=== PATIENT | male | born 1945 | race Caucasian/White ===

== ENCOUNTER 2019-12-31 14:39 | Outpatient (CLI) | payer MEDICARE, SELFPAY ==
--- NOTE | ~2019-12-31 | XR_ITS ---
XR lumbar spine 2-3V DATE: 12/31/2019 15:16 INDICATION: Low back pain, radiating to left leg. TECHNIQUE: AP, lateral, coned lateral lumbosacral views COMPARISON: None FINDINGS: Moderate osteopenia. There is mild levoscoliosis of the thoracolumbar spine. There is severe degenerative disc disease at L1-2, with prominent spurring. The remaining lumbar and lumbosacral interspaces are relatively well preserved. No fracture or bone destruction is evident. The included lower thoracic and lumbar pedicles are intac t. The sacroiliac joints are intact. Surgical clips overlie the left upper quadrant and right lower quadrant. There is a prominent amount of fecal material within the colon. IMPRESSION: Osteopenia Severe degenerative disc disease at L1-2 Reviewed, dictated and finalized at location A.
[2019-12-31 15:02] LABS: Basophils Absolute Auto 0.05 K/mm3 (0.00-0.10); Basophils Percent Auto 0.6 % (0.0-1.0); Eosinophils Absolute Auto 0.26 K/mm3 (0.02-0.50); Eosinophils Percent Auto 3.3 % (1.0-6.0); Hemoglobin 14.4 g/dL (12.4-15.3); Immature Granulocyte Absolute 0.03 K/mm3 (0.00-0.00); Immature Granulocyte Percent A 0.4 % (0.0-0.0); Lymphocytes Absolute Auto 2.29 K/mm3 (1.10-4.50); Mean Corpuscular HGB Conc 33.5 g/dL (32.0-36.0); Mean Corpuscular Volume 92.5 fL (78.0-102.0); Mean Platelet Volume 10.5 fl (8.7-11.0); Monocytes Absolute Auto 0.63 K/mm3 (0.10-0.90); Neutrophils Absolute Auto 4.6 K/mm3 (1.7-7.2); Neutrophils Percent Auto 58.7 % (50.0-70.0); Platelet Count Result 291 K/mm3 (150-420); Red Blood Count 4.65 M/mm3 (4.70-6.10); Red Cell Distribution Width 12.8 % (11.6-14.4); White Blood Count 7.9 K/mm3 (4.8-10.8)
[2019-12-31 15:10] LABS: Hemoglobin A1C 7.4 % (<5.7)
[2019-12-31 16:06] LABS: Alanine Aminotransferase 11 U/L (16-63); Albumin Level 4.1 g/dL (3.4-5.0); Alkaline Phosphatase 85 U/L (46-116); Anion Gap 15.9 mmol/L (7-16); Aspartate Amino Transferase 10 U/L (15-37); Bilirubin,Total 0.3 mg/dL (0.00-1.00); Blood Urea Nitrogen 20 mg/dL (7-18); Calcium 9.2 mg/dL (8.5-10.1); Carbon Dioxide 26 mmol/L (21-32); Chloride 101 mmol/L (98-108); Estimated Glomerular Filt Rate 43; Glucose 213 mg/dL (70-99); Osmolality Calculated 294 mOsm/kg (285-295); Potassium 4.9 mmol/L (3.5-5.1); Sodium 138 mmol/L (136-145); Total Protein 7.2 g/dL (6.4-8.2)
[2019-12-31 16:14] LABS: CRP < 0.0 mg/dL (0.0-0.9)
== END 2019-12-31 14:40 | disposition home or self-care (01) ==
LOC: CHSLAB 14:46
PROVIDERS: PCP Internal Medicine; Visit Provider Internal Medicine
DX: M54.9 Dorsalgia, unspecified (principal); M79.605 Pain in left leg; E11.9 Type 2 diabetes mellitus without complications
CPT/HCPCS: 36415; 72100; 80053; 83036; 85025; 86140

== ENCOUNTER 2020-01-01 10:27 | Outpatient (CLI) | payer MEDICARE, SELFPAY ==
--- NOTE | ~2020-01-01 | US_ITS ---
EXAMINATION: US arterial ankle brachial ind DATE: 01/01/2020 11:48 INDICATION: Peripheral arterial occlusive disease. TECHNIQUE: Segmental pressures and plethysmographic and Doppler waveforms of the brachial and lower e xtremity arteries were obtained. COMPARISON: None. FINDINGS: Right and left brachial artery pressures of 140 mm Hg and 133 mm Hg, respectively, are concordant (no rmal difference <= 30 mmHg). Borderline delayed systolic upstrokes at both the right posterior tibial and dorsalis pedis arteries on pulsed-wave Doppler. The right ankle-brachial index (BENJA) is 0.61 (normal >= 0.9-1.0). The left BENJA is 0.33 based only upon pressures in the left dorsalis pedis artery. No audible Doppler signal at the left posterior tibial artery with inflation of the pressure cuff however arterial wavef orms. Borderline delayed systolic upstrokes at both the left posterior tibial and dorsalis pedis marlene sheng on both stress Doppler. IMPRESSION: 1. Arterial occlusive disease to the bilateral lower limbs with moderately decreased right and severe ly decreased left ABIs. Reviewed, dictated and finalized at location A. IMPRESSION: 1. Arterial occlusive disease to the bilateral lower limbs with moderately decr eased right and severely decreased left ABIs.
== END 2020-01-01 10:28 | disposition home or self-care (01) ==
PROVIDERS: PCP Internal Medicine; Visit Provider Internal Medicine
DX: I73.9 Peripheral vascular disease, unspecified (principal); M54.9 Dorsalgia, unspecified; M79.605 Pain in left leg; E11.9 Type 2 diabetes mellitus without complications
CPT/HCPCS: 93922

== ENCOUNTER 2020-01-08 13:27 | Outpatient (RCR) | payer MEDICARE, SELFPAY ==
--- NOTE | 2020-01-16 09:13 | PTOPEVAL ---
Thank you for referring Tony Chapin to [facility]. Please review, sign, date and return this plan of care [facility]. I agree with and certify that the following plan of care is medically necessary. Referring Physician Date Admitting Provider: Attending Provider: Lazaro Pappas MD Referring Provider: *PT Outpatient Evaluation Start: 01/08/20 13:58 Freq: Status: Active Protocol: Document 01/08/20 13:58 J (Rec: 01/08/20 14:25 [id number]) Therapy Assessment Status Assessment Status Assessment Status Evaluation Evaluation Information Problem Diagnosis DDD Onset 01/04/20 Subjective Information patient reports he has been Query Text:As Reported By Patient/ having pain in the L leg. he Family reports he has been having pain in the L leg for about 2 weeks. he reports his doctor believes currently the pain may be coming from his back. patient reports he increased pain with walking long distances. he also reports he has increased pain at night. he reports the pain is behind his knee and down to his ankle (behind the leg). he reports he has had testing for blood clots of the LE's. Prior Level of Function Comments Additional Prior Level of Function prior to a few weeks ago, no Comments pain in the L LE. he reports he takes care of his yard weekly and noticed he began having pain one night that persisted. he reports he takes care of himself and his home. Pain Assessment Timing of Pain Assessment Timing of Pain Assessment Assessment Pain Scale Pain Scale Used Numeric (1 - 10) Self Report Pain Assessment Left Lower Posterior Leg(s) Reported Pain Level 5 Pain Description Sharp Greatest Pain Intensity 10 Pain Score Pain Score 5: Self Report Cervical and Lumbar ROM Lumbar ROM Lumbar Flexion Active Mid To Query Text:Hands to: Lumbar Extension (0-40) 0 Query Text:Active in Degrees Lumbar Lateral Flexion Right (0-40) 20 Query Text:Active in Degrees Lumbar Lateral Flexion Left (0-40) 20 Query Text:Active in Degrees Lower Extremity Muscle Strength Testing General Lower Extremity Strength Gross Lower Extremity Streng
== END 2020-03-04 15:33 | disposition home or self-care (01) ==
LOC: CHSPT 13:27
PROVIDERS: PCP Internal Medicine; Visit Provider Internal Medicine
DX: M51.36 Other intervertebral disc degeneration, lumbar region (principal); M54.5 Low back pain
CPT/HCPCS: 97014; 97110; 97161; 97530; G0283

== ENCOUNTER 2022-12-08 14:00 | Outpatient (CLI) | payer MEDICARE, SELFPAY ==
--- NOTE | ~2022-12-08 | US_ITS ---
EXAMINATION: US arterial ankle brachial ind DATE: 12/08/2022 15:14 INDICATION: Peripheral arterial occlusive disease. TECHNIQUE: Segmental pressures and plethysmographic and Doppler waveforms of the brachial and lower e xtremity arteries were obtained. COMPARISON: 01/01/2020 FINDINGS: Right and left brachial artery pressures of 143 mm Hg and 144 mm Hg, respectively, are concordant (no rmal difference <= 30 mmHg). The right ankle-brachial index (BENJA) is 0.49 (normal >= 0.9-1.0). The right great toe-brachial index (TBI) is 0.39 (normal >= 0.65), previously 0.36. Arterial Doppler waveforms demonstrate brisk systoli c upstrokes at both right posterior tibial and dorsalis pedis arteries. The left BENJA is unable to be obtained due to inability to insonate arterial waveforms during the plet hysmographic portion of the evaluation. The left TBI is 0.26, previously 0.19. Arterial Doppler wavef orms demonstrate borderline delayed upstrokes at the left posterior tibial and dorsalis pedis arterie s. IMPRESSION: 1. Arterial occlusive disease to the bilateral lower limbs with no significant change in moderately d ecreased right and severely decreased left toe brachial indices. Reviewed, dictated and finalized at location A. IMPRESSION: 1. Arterial occlusive disease to the bilateral lower limbs with no significant change in moderately decreased right and severely decreased left toe brachial i ndices.
== END 2022-12-08 14:01 | disposition home or self-care (01) ==
LOC: CHSIMG 14:01
PROVIDERS: PCP Internal Medicine; Visit Provider Internal Medicine
DX: N18.30 Chronic kidney disease, stage 3 unspecified (principal); E11.9 Type 2 diabetes mellitus without complications; I73.9 Peripheral vascular disease, unspecified
CPT/HCPCS: 93922

== ENCOUNTER 2023-01-27 18:51 | Inpatient (IN) | payer MEDICARE, SELFPAY ==
[2023-01-27] VITALS (26 sets, daily range): BP systolic 124–146; BP diastolic 59–83; PULSE 74–92; RESP 18–28; TEMP 36.8; O2SAT 93–100; BMI 20.5
--- NOTE | ~2023-01-27 | XR_ITS ---
EXAM: XR hip LT 2V w AP pelvis DATE: 01/27/2023 19:14 HISTORY: FALL, L HIP PAIN. SHORTENING AND ROTATION . COMPARISON: None available. FINDINGS: Normal mineralization. Mildly angulated intertrochanteric fracture. No lytic or blastic le jean. Joint spaces are maintained. No erosion or periosteal change. Soft tissues within normal limits . IMPRESSION: Mildly angulated left intertrochanteric fracture. Reviewed, dictated and finalized at location K.
--- NOTE | ~2023-01-27 | XR_ITS ---
EXAMINATION: XR chest 1V portable Exam Date/Time: 01/27/2023 19:30 CDT HISTORY: sob Comparison: 04/01/2019. RESULT: Lines, tubes, and devices: Surgical clips over the GE junction. Lungs and pleura: Senescent changes. No focal consolidation or pneumothorax. No large effusion. Pers istent left hemidiaphragm elevation and left basilar scar. Cardiomediastinal silhouette: Stable. Other: No acute osseous or upper abdominal finding. IMPRESSION: No acute cardiopulmonary process. Reviewed, dictated and finalized at location K.
--- NOTE | ~2023-01-27 | XR_ITS ---
EXAMINATION: XR surgery orthopedic DATE: 01/28/2023 17:25 CDT INDICATION: LT IT NAIL . TECHNIQUE: 3 fluoroscopic images of the left hip were obtained during left intertrochanteric nail edna cement performed by the surgeon. I was not present in the operating room. Fluoroscopy exposure time w as 2 minutes and 28.8 seconds. Air Kerma 0.4697 mGy. DAP 23.6936 mGym2. COMPARISON: None FINDINGS: Successful intertrochanteric nail placement, femoral intramedullary, and distal interlocking screw. N o unexpected radiopaque foreign body. IMPRESSION: Fluoroscopic documentation of left intertrochanteric nail placement. Please refer to the operative no te for complete procedural details . Reviewed, dictated and finalized at location K. IMPRESSION: Fluoroscopic documentation of left intertrochanteric nail placement. Please ref er to the operative note for complete procedural details .
[2023-01-27 19:45] LABS: Basophils Absolute Auto 0.1 K/mm3 (0.0-0.1); Basophils Percent Auto 0.4 % (0.2-1.2); Eosinophils Absolute Auto 0.1 K/mm3 (0-0.3); Eosinophils Percent Auto 0.9 % (0-4.4); Hematocrit 36.9 % (42.0-52.0); Hemoglobin 12.2 g/dL (14.0-18.0); Immature Granulocyte Absolute 0.08 K/mm3 (0.00-0.031); Immature Granulocyte Percent A 0.7 % (0-0.5); Lymphocytes Absolute Auto 1.09 K/mm3 (0.9-3.2); Mean Corpuscular HGB Conc 33.1 g/dl (32-36); Mean Corpuscular Hemoglobin 31.4 pg (26-34); Mean Corpuscular Volume 95.1 fl (80-100); Mean Platelet Volume 10.5 fl (7.4-10.4); Monocytes Absolute Auto 0.7 K/mm3 (0.1-0.6); Monocytes Percent Auto 5.7 % (2.6-8.5); Neutrophils Absolute Auto 10.1 K/mm3 (1.3-6.7); Neutrophils Percent Auto 83.3 % (45.5-73.1); Platelet Count Result 220 k/mm3 (150-375); Red Blood Count 3.88 M/mm3 (4.6-6.20); Red Cell Distribution Width 13.6 % (11.5-14.5); White Blood Count 12.1 K/mm3 (4.5-10.0)
[2023-01-27 19:48] LABS: INR 1.1; Prothrombin Time 14.3 Seconds (11.1-14.7)
[2023-01-27 19:49] LABS: Partial Thromboplastin Time 28.2 SECONDS (22.3-36.8)
[2023-01-27 19:53] LABS: Alanine Aminotransferase 14 U/L (6-50); Alkaline Phosphatase 59 U/L (38-126); Anion Gap 8 mmol/L (8-16); Aspartate Amino Transferase 24 U/L (17-59); Bilirubin,Total 0.5 mg/dL (0.2-1.3); Blood Urea Nitrogen 27 mg/dL (9-20); Calcium 8.7 mg/dL (8.4-10.2); Carbon Dioxide 25 mmol/L (22-30); Chloride 100 mmol/L (98-107); Estimated CRCL calculation 33 ml/min; Estimated Glomerular Filt Rate 45; Glucose 131 mg/dL (65-110); Potassium 4.6 mmol/L (3.4-5.0); Sodium 133 mmol/L (137-145)
[2023-01-27] MEDS: HYDROmorphone HCL INJ (*CRX) 1 MG/ML SYR 0.5 MG IV PUSH (19:54)
[2023-01-27] MEDS: SODIUM CHLORIDE 0.9% IV 1,000 ML 999 ML IV CONT (19:55)
--- NOTE | 2023-01-27 20:12 | PM.IMHP ---
H&P: HPI History of Present Illness Date/Time: 01/27/23 20:12 Chief Complaint: fall Narrative: This is an 78-year-old male with past medical history significant for type diabetes mellitus, dyslipidemia, tobacco dependence. 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 Patient denies any loss of consciousness. Preliminary workup is significant for x-ray of the hip was reported as: EXAM:? XR hip LT 2V w AP pelvis DATE: 01/27/2023 19:14 HISTORY: FALL, L HIP PAIN. SHORTENING AND ROTATION . COMPARISON:? None available. FINDINGS:? Normal mineralization. Mildly angulated intertrochanteric fracture. No lytic or blastic lesion. Joint spaces are maintained. No erosion or periosteal change. Soft tissues within normal limits. IMPRESSION: Mildly angulated left intertrochanteric fracture. EXAMINATION:? XR chest 1V portable Exam Date/Time:? 01/27/2023 19:30 CDT HISTORY: sob ? Comparison:? 04/01/2019. RESULT: Lines, tubes, and devices:? Surgical clips over the GE junction. Lungs and pleura:? Senescent changes. No focal consolidation or pneumothorax. No large effusion. Persistent left hemidiaphragm elevation and left basilar scar. Cardiomediastinal silhouette:? Stable. Other:? No acute osseous or upper abdominal finding. ? IMPRESSION: No acute cardiopulmonary process. Review of Systems Review of Systems: Fall, left hip pain, unable to bear weight on the left leg, unable to stand, decreased range of motion of left hip, left leg deformity Constitutional: Constitutional: Denies chills, Denies fatigue, Denies fever(s), Denies malaise, Reports poor appetite and Denies weakness Eyes: Eyes: Denies change in vision ENT: Denies dysphagia, Denies vertigo, Denies dizziness and Denies odynophagia Cardiovascular: Cardiovascular: Denies chest pain, Denies radiating jaw, neck or arm pain and Denies palpitations Respiratory: Respiratory: Denies chest congestion, Denies cough and Denies excessive phlegm production Gastrointestinal: Gastrointestinal: Denies abdominal pain, Denies dyspepsia, Denies heartburn, Denies diarrhea, Denies nausea and Denies vomiting Genitourinary: Genitourinary: Denies dysuria and Denies flank pain Musculoskeletal: Musculoskeletal: Reports deformity, Reports arthralgias and Reports limited range of motion Comments: Left hip Integumentary/Breasts: Skin/Breast: Denies rash Neurologic: Denies focal weakness and Denies Sensory deficit (Neuro) Psychiatric: Psychiatric: Reports no additional psychiatric complaints and Reports as per HPI Endocrine: Endocrine: Denies cold intolerance, Denies flushing, Denies heat intolerance, Denies polyphagia, Denies polydipsia and Denies palpitations Hematologic/Lymphatic: Hematologic/Lymphatic: Reports no additional hematologic/lymphatic complaints and Reports as per HPI Allergic/Immunologic: Allergic/Immunologic: Reports no additional allergic/immunologic complaints and Reports as per HPI PMF Family History Family History (Updated 01/27/23 @ 23:38 by Kristie Sharpe RN) Father Diabetes mellitus Dementia Mother Diabetes mellitus FH: CABG (coronary artery bypass surgery) Sibling Diabetes mellitus Sibling Diabetes mellitus Other Family history of arthritis Family history of lung cancer Social History Social History Smoking packs per day: 2 Smoking cigarettes per day: 40.0 Years smoked: 66 Smoking pack-years: 132.00 Smoking status: Current every day smoker Tobacco type: cigarettes Alcohol intake: never Substance use: never Substance use type: does not use Lack of Transportation: No Lack of Fo
--- NOTE | 2023-01-27 21:48 | ED.LOWEXIN ---
HPI - Extremity Injury (Lower) General Chief Complaint: Extremity Injury, Lower Stated Complaint: fall from mower History of Present Illness HPI Narrative: Patient is an 78-year-old male with a history of hyperlipidemia, diabetes, tobacco use presenting with left hip pain. Patient states that he was getting off of his mower when his left leg gave out from under him. States that this has been an ongoing problem. States that he fell onto his left hip and immediately had severe left hip pain and was unable to walk. EMS was called and noted that he had a shortened and externally rotated left leg. On arrival here, he states that his pain has improved following IV pain meds. He denies numbness or weakness. He denies any other injuries or complaints. Related Data Home Medications Medication Instructions Recorded Confirmed metformin 500 mg tablet,extended 500 mg PO BID 01/27/23 02/01/23 release 24 hr pravastatin 20 mg tablet 20 mg PO HS 01/27/23 02/01/23 Allergies Allergy/AdvReac Type Severity Reaction Status Date / Time No Known Allergies Allergy Verified 01/28/23 14:11 Review of Systems Review of Systems: All systems reviewed & are unremarkable except as noted in HPI and below PMFSH Past Medical History Medical History (Updated 02/08/23 @ 09:22 by Alfonso Joiner, ECHO) Closed intertrochanteric fracture of left femur Diabetes 1.5, managed as type 2 Fall Injury of left hand History of left hand injury as a kid, limited mobility Tobacco dependence Family History Family History Father Diabetes mellitus Dementia Mother Diabetes mellitus FH: CABG (coronary artery bypass surgery) Sibling Diabetes mellitus Sibling Diabetes mellitus Other Family history of arthritis Family history of lung cancer Social History Social History Smoking packs per day: 2 Smoking cigarettes per day: 40.0 Years smoked: 66 Smoking pack-years: 132.00 Smoking status: Current every day smoker Tobacco type: cigarettes Alcohol intake: never Substance use: never Substance use type: does not use Lack of Transportation: No Lack of Food: Often True Current Housing: I Have Housing Concerned About Future Housing: No Difficulty Paying Gas/Electric Bills: YES Difficulty Paying for Meds: YES Currently Unemployed: No Education: High School Diploma/GED Difficulty w/ Childcare or Family Care: No Spiritual care concerns: No Exam Narrative: GENERAL: Well-appearing, well-nourished, and in no acute distress. HEAD: Normocephalic, atraumatic. EYES: PERRLA and EOMI. ENT: Nares clear, no rhinorrhea or epistaxis. Mucous membranes moist. NECK: Supple. CHEST: Somewhat diminished bilaterally but no wheezing or crackles HEART: Regular rate and rhythm. Normal peripheral pulses. ABDOMEN: Soft, nontender, nondistended EXTREMITIES: Left leg is shortened and externally rotated, has tenderness over his lateral left hip, neurovascularly intact SKIN: Warm, dry, no rash. NEURO: No focal deficits. Alert and oriented x3. PSYCH: Normal mood and affect. Course Vital Signs Vital signs: Vital Signs Temperature 98.2 F 01/27/23 18:47 Pulse Rate 76 01/27/23 18:47 Respiratory Rate 20 01/27/23 18:47 Blood Pressure 140/68 01/27/23 18:47 Pulse Oximetry 95 01/27/23 18:47 Oxygen Delivery Room Air 01/27/23 18:47 Temperature 97.6 F 02/01/23 18:00 Pulse Rate 73 02/01/23 18:00 Respiratory Rate 16 02/01/23 18:00 Blood Pressure 128/62 02/01/23 18:00 Pulse Oximetry 96 02/01/23 18:00 Oxygen Delivery Room Air 02/01/23 09:40 Oxygen Flow Rate 3.5 01/29/23 05:56 MDM - Extremity Injury (Lower) MDM Narrative Medical decision making narrative: Patient is an 78-year-old male presenting with a left hip injury following a fall. Vitals within normal limits. E
--- NOTE | 2023-01-27 23:35 | ADMGEN ---
This patient, Tony Chapin, was admitted to 2 Medical Room 242-01. Patient/family oriented to hospital policies and general routines including ID bracelet, bed and alarms, visiting hours, pain management, procedures, bathroom and other care routines, personal items, smoking policy, room service/diet, and visiting hours. Information on how to activate the Rapid Response Team has been discussed. Patient/Family are encouraged to report perceived risks to care and to ask questions if they do not understand what they are told or what they should do.
[2023-01-27] MEDS: HYDROmorphone HCL INJ (*CRX) 1 MG/ML SYR IV PUSH (23:51)
[2023-01-28] VITALS (19 sets, daily range): BP systolic 120–165; BP diastolic 59–96; PULSE 67–94; RESP 11–22; TEMP 36.2–37.1; O2SAT 93–97
[2023-01-28] MEDS: HYDROmorphone HCL INJ (*CRX) 1 MG/ML SYR IV PUSH ×2 (05:00→08:03)
[2023-01-28 06:14] LABS: Glucose Point of Care 226 mg/dl (65-105)
--- NOTE | 2023-01-28 08:43 | PM.CNOR ---
Assessment and Plan Assessment and plan (1) Closed intertrochanteric fracture of left femur: Qualifiers: Encounter type: initial encounter Fracture alignment: displaced Qualified Code(s): S72.142A - Displaced intertrochanteric fracture of left femur, initial encounter for closed fracture Code(s): S72.142A - Displaced intertrochanteric fracture of left femur, initial encounter for closed fracture Status: Acute Assessment and Plan: History, exam and radiographs reviewed with the patient. Radiographs of the left hip in the ED reveal a mildly angulated left intertrochanteric fracture. The fracture type and injury as well as radiographs discussed with the patient. Operative and nonoperative treatment options reviewed. The patient elects for operative treatment. Risks of surgery including but not limited to neurovascular damage, wound complications, blood clot, pulmonary embolus, stroke, myocardial infarction, anesthetic risks up to and including were reviewed. Continued pain and possible dysfunction were explained. No guarantees were offered. The patient understands and wishes to proceed. Plan: Left Hip IT Nail by Dr. Reed NPO. Hold anticoagulation. Pain control. Ice hip. Bed rest. Appreciate medicine team clearance for surgical intervention. (2) Tobacco dependence: Code(s): F17.200 - Nicotine dependence, unspecified, uncomplicated Status: Acute Plan Reviewed history, exam, radiographs and surgical plans with attending physician and consulted surgeon, Dr. Reed. Agrees with current plan of care as indicated above. No further recommendations at this time. History of Present Illness HPI Consult date: 01/28/23 Consult reason: fracture Chief complaint: Left Intertrochanteric Fx Narrative: 78-year-old male with a history of high cholesterol, diabetes and tobacco use presented with left hip pain to the emergency room on January 27. He reports that he was getting off his mower and his left leg gave out from underneath of him. He immediately felt severe pain after falling onto the left hip and was unable to walk. EMS transported the patient to the emergency room. Radiographs in the ER reveal a left hip fracture. Orthopedic consult requested. Patient admitted for further evaluation surgical intervention. Review of Systems Constitutional: Constitutional: Reports no additional constitutional complaints, Denies excessive sweating, Denies fever(s) and Denies weight gain Eyes: Eyes: Reports no additional eye complaints and Denies change in vision ENT: Reports system reviewed and no additional complaints, except as documented and Reports Normal hearing present Cardiovascular: Cardiovascular: Denies chest pain, Denies diaphoresis, Denies leg ulcers and Denies dyspnea on exertion Respiratory: Respiratory: Reports no additional respiratory complaints, Denies cough and Denies dyspnea on exertion Gastrointestinal: Gastrointestinal: Reports no additional gastrointestinal complaints, Denies abdominal pain, Denies constipation, Denies nausea and Denies vomiting Genitourinary: Genitourinary: Reports no additional male genitourinary complaints, Denies hematuria and Denies urinary frequency Musculoskeletal: Musculoskeletal: Reports no additional musculoskeletal complaints and Reports as per HPI Neurologic: Reports Normal hearing present Endocrine: Endocrine: Reports no additional endocrine complaints, Denies change in body appearance, Denies excessive sweating, Denies polyphagia, Denies polydipsia and Denies polyuria [facility] Past Medical History Medical History (Updated 01/28/23 @ 08:45 by YOLI Robledo) Injury of left hand History of left hand injury as a kid, limited mobility Family History Family History Father Diabetes mellitus Dementia Mother Diabetes mellitus FH: CABG (coronary artery bypass surgery) Sibling Diabe
--- NOTE | 2023-01-28 09:18 | PM.IMPN ---
Progress Note: A&P Assessment and Plan (1) Tobacco dependence: Code(s): F17.200 - Nicotine dependence, unspecified, uncomplicated Status: Acute Assessment and Plan: Currently smokes 2 packs per day for the last 66 years. - Nicotine patch 21 mg daily - counseled on cessation but patient is not ready to quit. (2) Closed intertrochanteric fracture of left femur: Qualifiers: Encounter type: initial encounter Fracture alignment: displaced Qualified Code(s): S72.142A - Displaced intertrochanteric fracture of left femur, initial encounter for closed fracture Code(s): S72.142A - Displaced intertrochanteric fracture of left femur, initial encounter for closed fracture Status: Acute Assessment and Plan: Left displaced, closed fracture of left femur -Going to OR today with ortho for IM nail -NPO since midnight -Bed rest -Ice and prn pain medications for pain control -Will need PT/OT consult post surgery per ortho timeline -No anticogulation at this time for surgery. Look for ortho to recommendations on when to start subcutaneous heparin. (3) Fall: Code(s): W19.XXXA - Unspecified fall, initial encounter Status: Acute Assessment and Plan: Fall at home -PT/OT consult when appropraite -Likely will benefit from short rehab stay after surgery as he lives alone (4) Diabetes 1.5, managed as type 2: Code(s): E13.9 - Other specified diabetes mellitus without complications Status: Acute Assessment and Plan: DM II -On metformin 500 mg PO BID. Holding while in the hospital. -AC/HS accu checks ordered, Hemoglobin A1C ordered. POC glucose was 226. -Ordered low dose sliding scale insulin -Can resume diabetic diet after surgery Subjective Date/time seen: 01/28/23 09:18 Interval history: This is Mr. Chapin, an 78 year old male who is admitted for a closed left hip fracture after falling at home. He has a PMH of DM for which he takes metformin and dyslipidemia on pravastatin. He is a 2 pack per day smoker and denies ETOH use. He currently lives at home alone and his daughter, Marla is his support person. He is a pleasant, thin man, who appears stated age. This morning he is feeling well and is anticipating his surgery with orthopedics. He states that his pain is well controlled with prn medications. He has been NPO since midnight and has remained on bedrest. Review of Systems Review of Systems: ROS is negative bedsides his complaint of pain and deformity to left hip. Exam Narrative: Physical Exam: General: ?Pleasant, well appearing, thin, and appears stated age Neuro:?Alert and orientated x 4. PERRLA. Cranial nerves 2-12 intact without focal deficit. HEENT: normocephalic, atraumatic, mucous membranes moist. Neck supple without JVD or lymphadenopathy. Lungs: course anterior breath sounds bilaterally with rhonchi that clear with coughing Heart: Regular rate and rhythmn, normal S1-S2, on telemetry NSR. No murmurs/clicks on auscaltation. PMI nondisplaced. Abdomen: ?soft, non-distended and non-tender and hypoactive BS x4 : expected male anatomy Extremities: Warm upper extremities and right lower extremity without edema, normal ROM. Left lower extremity is externally rotated and shortened compared to the right. There is limited ROM and + pain to palpation over the left hip. Pulses: 2/1. Bilateral lower extremity pulses are weak but palpable. Skin: Intact, without rash or lesions. Tattoos present. Psych: pleasant, cooperative. Objective Data Vital Signs Vital Signs: Vital Signs - 24 hr 01/27/23 18:47 01/27/23 18:57 01/27/23 18:58 Temperature 36.8 C Pulse Rate 76 76 78 Respiratory Rate 20 25 H 21 H Blood Pressure 140/68 142/68 H Pulse Oximetry 95 95 Oxygen Delivery Room Air 01/27/23 19:00 01/27/23 19:02 01/27/23 19:16 Temperature Pulse Rate 82 74 74 Respiratory Rate 24 H 23 H 24 H Blood Pressure 136/71
--- NOTE | 2023-01-28 12:49 | WPDHPUPDATE1 ---
History and Physical Update Update Date/Time: 01/28/23 12:49 History and Physical has been reviewed, including an updated exam of the patient. There are NO changes in the patient's condition. Risks, benefits, and alternatives have been discussed and questions answered. Patient agrees to proceed with procedure.
[2023-01-28 13:06] LABS: Glucose Point of Care 169 mg/dl (65-105)
[2023-01-28] MEDS: LACTATED RINGERS 1,000 ML 30 ML IV CONT ×2 (13:30→18:18)
[2023-01-28] MEDS: TRANEXAMIC ACID 1,000MG/ISO100 1,000 MG/100 ML BAG 200 MG IVPB (14:27)
--- NOTE | 2023-01-28 15:03 | WPDANESEPPF ---
Anes - Initial Pre Proc Eval Procedure: Operation Date: 01/28/23 15:00 Proposed Procedures p Left Intertrochanteric Nail - Nate Reed MD Date/Time: 01/28/23 15:03 Surgeon: Tao De La Rosa MD Pre Op Diagnosis: Left Intertrochanteric Fx Patient Data Age: 78 Gender: M Height: 1.78 m Weight: 65 kg Last Vital Signs Temp 37.1 C 01/28/23 14:18 Pulse 74 01/28/23 14:18 Resp 16 01/28/23 14:18 BP 125/70 01/28/23 14:18 Pulse Ox 94 01/28/23 14:18 O2 Del Method Room Air 01/28/23 14:18 Allergies Allergy/AdvReac Type Severity Reaction Status Date / Time No Known Allergies Allergy Verified 01/28/23 14:11 Home Medications Medication Instructions Recorded Confirmed Type metformin 500 mg tablet,extended 500 mg PO BID 01/27/23 01/27/23 History release 24 hr pravastatin 20 mg tablet 20 mg PO HS 01/27/23 01/27/23 History Laboratory Tests 01/27/23 01/28/23 01/28/23 19:30 04:36 10:32 WBC 12.1 H K/mm3 (4.5-10.0) RBC 3.88 L M/mm3 (4.6-6.20) Hgb 12.2 L g/dL (14.0-18.0) Hct 36.9 L % (42.0-52.0) MCV 95.1 fl (80-100) MCH 31.4 pg (26-34) MCHC 33.1 g/dl (32-36) RDW 13.6 % (11.5-14.5) Plt Count 220 k/mm3 (150-375) MPV 10.5 H fl (7.4-10.4) Immature Gran % (Auto) 0.7 H % (0-0.5) Neut % (Auto) 83.3 H % (45.5-73.1) Lymph % (Auto) 9.0 L % (18.3-44.2) [place] % (Auto) 5.7 % (2.6-8.5) Eos % (Auto) 0.9 % (0-4.4) Baso % (Auto) 0.4 % (0.2-1.2) Lymph # (Auto) 1.09 K/mm3 (0.9-3.2) [place] # (Auto) 0.7 H K/mm3 (0.1-0.6) Eos # (Auto) 0.1 K/mm3 (0-0.3) Baso # (Auto) 0.1 K/mm3 (0.0-0.1) Abs Immat Gran (auto) 0.08 H K/mm3 (0.00-0.031) Absolute Neuts (auto) 10.1 H K/mm3 (1.3-6.7) Absolute Nucleated RBC 0.0 K/mm3 (0.0-0.012) Nucleated RBC % 0.0 % (0.0-0.2) PT 14.3 Seconds (11.1-14.7) INR 1.1 APTT 28.2 SECONDS (22.3-36.8) Sodium 133 L mmol/L (137-145) Potassium 4.6 mmol/L (3.4-5.0) Chloride 100 mmol/L (98-107) Carbon Dioxide 25 mmol/L (22-30) Anion Gap 8 mmol/L (8-16) BUN 27 H mg/dL (9-20) Creatinine 1.50 H mg/dL (0.7-1.3) Estim Creat Clear Calc 33 ml/min Estimated GFR 45 L (59 - ) Glucose 131 H mg/dL (65-110) POC Capillary Glucose 226 H mg/dl (65-105) Hemoglobin A1c 7.0 H % (<5.7) Calcium 8.7 mg/dL (8.4-10.2) Total Bilirubin 0.5 mg/dL (0.2-1.3) AST 24 U/L (17-59) ALT 14 U/L (6-50) Alkaline Phosphatase 59 U/L (38-126) Total Protein 7.0 g/dL (6.3-8.2) Albumin 4.0 g/dL (3.5-5.1) 01/28/23 13:02 WBC RBC Hgb Hct MCV MCH MCHC RDW Plt Count MPV Immature Gran % (Auto) Neut % (Auto) Lymph % (Auto) [place] % (Auto) Eos % (Auto) Baso % (Auto) Lymph # (Auto) [place] # (Auto) Eos # (Auto) Baso # (Auto) Abs Immat Gran (auto) Absolute Neuts (auto) Absolute Nucleated RBC Nucleated RBC % PT INR APTT Sodium Potassium Chloride Carbon Dioxide Anion Gap BUN Creatinine Estim Creat Clear Calc Estimated GFR Glucose POC Capillary Glucose 169 H mg/dl (65-105) Hemoglobin A1c Calcium Total Bilirubin AST ALT Alkaline Phosphatase Total Protein Albumin Patient hx anesthesia problems: none Family hx anesthesia problems: none Results Review: All pre-operative results and documents have been revi
[2023-01-28] MEDS: FAMOTIDINE 20 MG/2 ML VIAL IV PUSH (15:18)
[2023-01-28] MEDS: ONDANSETRON INJ 4 MG/2 ML VIAL IV PUSH (15:18)
[2023-01-28] MEDS: HYDROmorphone HCL INJ (*CRX) 1 MG/ML SYR 0.5 MG IV PUSH (15:50)
[2023-01-28] MEDS: ceFAZolin 2 GM/D5W 50 ML 2 GM/50 ML BAG IVPB ×2 (17:03→21:26)
--- NOTE | 2023-01-28 18:12 | W.PM.PROC2 ---
Procedure Note - Detailed Date of Procedure 01/28/23 Pre-op Diagnosis Left Intertrochanteric Fx Post-op Diagnosis Same Procedure Performed INSERTION GAMMA NORAH LEFT HIP Surgeon Nate Reed MD Anesthesia General Description of Procedure THE PATIENT WAS TAKEN TO THE OPERATING ROOM AND PLACED ON A FRACTURE TABLE AFTER GIVEN GENERAL ANESTHESIA. THE LEFT LOWER EXTREMITY WAS PLACED IN A TRACTION BOOT AND USING SOME TRACTION AND INTERNAL ROTATION THE INNER TROCHANTERIC FRACTURE WAS REDUCED TO ANATOMIC POSITION. NEXT THE LEFT LOWER EXTREMITY WAS PREPPED AND DRAPED IN THE STERILE FASHION. AN INCISION WAS MADE PROXIMAL TO THE TIP OF THE GREATER TROCHANTER AND DISSECTION CONTINUED TILL THE TIP OF THE GREATER TROCHANTER WAS PALPATED. A GUIDE PIN WAS PLACED DOWN THE FEMORAL CANAL AND PAST THE FRACTURE SITE. THIS WAS CHECKED ON FLUOROSCOPY AND FOUND TO BE IN GOOD POSITION. AN INITIAL REAMER WAS USED TO REAM THE FEMORAL CANAL. A 10 BY 200 MM ARTHREX TROCH NORAH WAS INSERTED TILL THE CORRECT POSITION WAS IDENTIFIED ON XRAY. A GUIDE PIN WAS INSERTED THROUGH THE FEMORAL NECK AT [address] TILL IT REACHED THE TIP OF THE SUB CHONDRAL BONE SEEN ON XRAY. AFTER REAMING, LAG SCREW WAS INSERTED MEASURING 90 MM. XRAYS SHOWED IT TO BE IN GOOD POSITION. THE LAG SCREW WAS LOCKED PROXIMALLY WITH A LOCKING BOLT. NEXT A DISTAL LOCKING SCREW WAS PLACED ACROSS THE NORAH AND WAS IN GOOD POSITION ON XRAY. THE TRACTION WAS RELEASED. THE WOUNDS WERE WASHED. THE DEEP FASCIA WAS REPAIRED WITH 0 VICRYL SUTURE, THE SUB CUTANEOUS LAYER WITH 2-0 VICRYL, AND THE SKIN WITH CHELO. THE WOUNDS WERE WASHED AND THEN STERILE DRESSING WAS APPLIED. PATIENT WAS EXTUBATED AND SENT TO RECOVERY ROOM. Estimated Blood Loss 100 Urine Output 275 Complications No immediate complications Condition Stable Disposition PACU
[2023-01-28] MEDS: fentaNYL CITRATE INJ (*CRX) 100 MCG/2 ML VIAL 25 MCG IV PUSH ×4 (18:35→18:49)
[2023-01-28 19:01] LABS: Glucose Point of Care 164 mg/dl (65-105)
[2023-01-28] MEDS: PRAVASTATIN SODIUM 20 MG TABLET PO (21:24)
[2023-01-28] MEDS: FAMOTIDINE 20 MG TABLET PO (21:24)
[2023-01-28] MEDS: diazePAM (*CRX) 5 MG TABLET PO (21:24)
[2023-01-28] MEDS: SENNA/DOCUSATE SODIUM TABLET 2 TAB PO (21:24)
[2023-01-28] MEDS: SODIUM CHLORIDE 0.9% IV 1,000 ML 125 ML IV CONT (21:27)
[2023-01-29] VITALS (14 sets, daily range): BP systolic 119–133; BP diastolic 56–79; PULSE 79–105; RESP 16–18; TEMP 36.6–37.7; O2SAT 94–100
[2023-01-29 00:07] LABS: Glucose Point of Care 222 mg/dl (65-105)
[2023-01-29] MEDS: SODIUM CHLORIDE 0.9% IV 1,000 ML 125 ML IV CONT (05:02)
[2023-01-29] MEDS: ceFAZolin 2 GM/D5W 50 ML 2 GM/50 ML BAG IVPB ×2 (05:02→13:36)
[2023-01-29 05:10] LABS: Basophils Percent Auto 0.1 % (0.2-1.2); Hematocrit 31.2 % (42.0-52.0); Hemoglobin 10.4 g/dL (14.0-18.0); Immature Granulocyte Absolute 0.03 K/mm3 (0.00-0.031); Immature Granulocyte Percent A 0.3 % (0-0.5); Lymphocytes Absolute Auto 0.61 K/mm3 (0.9-3.2); Lymphocytes Percent Auto 6.8 % (18.3-44.2); Mean Corpuscular HGB Conc 33.3 g/dl (32-36); Mean Corpuscular Hemoglobin 31.5 pg (26-34); Mean Corpuscular Volume 94.5 fl (80-100); Mean Platelet Volume 10.8 fl (7.4-10.4); Monocytes Absolute Auto 1.1 K/mm3 (0.1-0.6); Neutrophils Absolute Auto 7.2 K/mm3 (1.3-6.7); Neutrophils Percent Auto 80.8 % (45.5-73.1); Platelet Count Result 191 k/mm3 (150-375); Red Cell Distribution Width 13.3 % (11.5-14.5); White Blood Count 8.9 K/mm3 (4.5-10.0)
[2023-01-29 05:33] LABS: Alanine Aminotransferase 15 U/L (6-50); Albumin Level 3.2 g/dL (3.5-5.1); Alkaline Phosphatase 46 U/L (38-126); Anion Gap 4 mmol/L (8-16); Aspartate Amino Transferase 24 U/L (17-59); Bilirubin,Total 0.5 mg/dL (0.2-1.3); Blood Urea Nitrogen 18 mg/dL (9-20); Carbon Dioxide 28 mmol/L (22-30); Chloride 102 mmol/L (98-107); Estimated CRCL calculation 44 ml/min; Estimated Glomerular Filt Rate > 60; Glucose 183 mg/dL (65-110); Magnesium 1.7 mg/dL (1.6-2.3); Potassium 4.4 mmol/L (3.4-5.0); Sodium 134 mmol/L (137-145)
--- NOTE | 2023-01-29 05:48 | PC.NURSE ---
Patient confused throughout night, climbing out of bed all night. Patient alert and oriented x2 this AM. Patient offered food several times throughout night and refused. Patient also denies any pain and has refused all pain medication when offered. Patient was able to stand up with assistance but was not able to pivot or ambulate. Patient was put back into bed with bed alarm on with fall precautions.
[2023-01-29] MEDS: SENNA/DOCUSATE SODIUM TABLET 2 TAB PO ×2 (08:48→18:06)
[2023-01-29] MEDS: CELECOXIB 200 MG CAPSULE PO (08:48)
[2023-01-29] MEDS: polyethylene glycoL 3350 17 GM POWD.PACK PO (08:49)
[2023-01-29] MEDS: metFORMIN HCL XR 500 MG TAB.SR.24H PO ×2 (08:49→18:06)
[2023-01-29] MEDS: ENOXAPARIN 40 MG/0.4 ML SYRINGE SUB-Q (08:49)
[2023-01-29] MEDS: FAMOTIDINE 20 MG TABLET PO ×2 (08:49→20:02)
[2023-01-29 08:59] LABS: Glucose Point of Care 167 mg/dl (65-105)
--- NOTE | 2023-01-29 11:03 | PM.PNORT ---
Progress Note: A&P Assessment and Plan (1) Closed intertrochanteric fracture of left femur: Qualifiers: Encounter type: initial encounter Fracture alignment: displaced Qualified Code(s): S72.142A - Displaced intertrochanteric fracture of left femur, initial encounter for closed fracture Code(s): S72.142A - Displaced intertrochanteric fracture of left femur, initial encounter for closed fracture Status: Acute Assessment and Plan: POD 1 DOING WELL. CONTINUE PT. Subjective Subjective Date/Time Seen: 01/29/23 11:03 Interval history: POD 1 DOING WELL. PAIN CONTROLLED. NO CALF PAIN Exam Extrem: Other: VSS AFEBRILE DRESSING DRY NV INTACT NEG HOMANS SIGN, CALF AND THIGH SOFT NON TENDER Objective Data Vital Signs Vital Signs: Vital Signs - 24 hr 01/28/23 12:00 01/28/23 14:18 01/28/23 18:18 Temperature 37.1 C 36.6 C Pulse Rate 70 74 90 Respiratory Rate 16 13 Blood Pressure 125/70 133/83 Pulse Oximetry 94 93 Oxygen Delivery Room Air Nasal Cannula Oxygen Flow Rate 3.5 01/28/23 19:05 01/28/23 18:29 01/28/23 18:35 Temperature Pulse Rate 86 86 89 Respiratory Rate 18 11 L 15 Blood Pressure 153/80 H 165/84 H 153/82 H Pulse Oximetry 95 97 96 Oxygen Delivery Nasal Cannula Nasal Cannula Nasal Cannula Oxygen Flow Rate 3.5 3.5 3.5 01/28/23 18:50 01/28/23 19:20 01/28/23 19:35 Temperature Pulse Rate 84 86 81 Respiratory Rate 12 17 15 Blood Pressure 139/79 144/78 H 151/71 H Pulse Oximetry 95 97 Oxygen Delivery Nasal Cannula Nasal Cannula Nasal Cannula Oxygen Flow Rate 3.5 3.5 3.5 01/28/23 20:00 01/28/23 20:00 01/28/23 20:00 Temperature 36.2 C L Pulse Rate 93 81 Respiratory Rate 16 Blood Pressure 150/96 H Pulse Oximetry 97 Oxygen Delivery Room Air Oxygen Flow Rate 01/28/23 20:15 01/28/23 20:45 01/28/23 21:45 Temperature 36.4 C L 37.1 C 36.9 C Pulse Rate 92 93 93 Respiratory Rate 15 16 18 Blood Pressure 136/65 131/61 133/71 Pulse Oximetry 97 93 94 Oxygen Delivery Oxygen Flow Rate 06/16/23 23:52 01/29/23 00:00 01/29/23 04:00 Temperature 36.9 C Pulse Rate 94 96 105 H Respiratory Rate 17 Blood Pressure 120/70 Pulse Oximetry 96 Oxygen Delivery Oxygen Flow Rate 01/29/23 04:55 01/29/23 05:56 01/29/23 07:37 Temperature 37.7 C H Pulse Rate 86 Respiratory Rate 18 Blood Pressure 119/56 L Pulse Oximetry 95 94 Oxygen Delivery Nasal Cannula Room Air Oxygen Flow Rate 3.5 01/29/23 07:58 01/29/23 08:19 01/29/23 09:28 Temperature 36.9 C Pulse Rate 89 Respiratory Rate 18 Blood Pressure 130/60 Pulse Oximetry 96 Oxygen Delivery Room Air Room Air Oxygen Flow Rate Intake/Output Intake/Output: Intake & Output 01/26/23 01/27/23 01/28/23 01/29/23 23:59 23:59 23:59 23:59 Intake Total 0955 590 9239 Output Total 225 975 300 Balance 775 -75 1240 Meds/Results Medications: Active Medications Generic Name Dose Route Start Last Admin Trade Name Freq PRN Reason Stop Dose Admin Acetaminophen 1,000 mg 01/27/23 23:22 Acetaminophen 500 Mg Tablet PO Q6H PRN Mild Pain (1-3) or Fever Acetaminophen 650 mg 01/28/23 19:43 Acetaminophen 325 Mg Tablet PO Q6H PRN Mild Pain (1-3) or Fever Hydrocodone Bitart/Acetaminophen 1 tab 01/28/23 19:43 Hydrocodone/Acetaminophen (*Crx) 7.5-325 Mg Tablet PO Q3H PRN Pain Rated 4-6 Hydrocodone Bitart/Acetaminophen 2 tab 01/28/23 19:43 Hydrocodone/Acetaminophen (*Crx) 7.5-325 Mg Tablet PO Q6H PRN Pain Rated 7-10 Al Hydrox/Mg Hydrox/Simethicone 30 ml 01/27/23 23:27 Mag Hydrox/Al Hydrox/Simeth 30 Ml Udc PO Q6H PRN Indigestion Celecoxib 200 mg 01/29/23 08:00 01/29/23 08:48 Celecoxib 200 Mg Capsule PO 200 mg DAILY@0800 ERIC Administration Dextrose 12.5 gm 01/28/23 09:43 Dextrose 50% 25 Gm/50 Ml Syringe IV PUSH PRN PRN Hypoglycemia Protoco
--- NOTE | 2023-01-29 11:36 | PM.IMPN ---
Progress Note: A&P Assessment and Plan (1) Diabetes 1.5, managed as type 2: Code(s): E13.9 - Other specified diabetes mellitus without complications Status: Inactive (2) Tobacco dependence: Code(s): F17.200 - Nicotine dependence, unspecified, uncomplicated Status: Inactive (3) Closed intertrochanteric fracture of left femur: Qualifiers: Encounter type: initial encounter Fracture alignment: displaced Qualified Code(s): S72.142A - Displaced intertrochanteric fracture of left femur, initial encounter for closed fracture Code(s): S72.142A - Displaced intertrochanteric fracture of left femur, initial encounter for closed fracture Status: Inactive (4) Fall: Code(s): W19.XXXA - Unspecified fall, initial encounter Status: Inactive Plan Displaced, closed fracture of left femur -POD 1 today with ortho for IM nail - tolerating DM diet -weight bearing as tolerated with appropriate assist devices. Up to chair during daylight hours. -Ice and prn pain medications for pain control -Will need PT/OT consult post surgery per ortho timeline -No anticoagulation at this time for surgery. Look for ortho to recommendations on when to start subcutaneous heparin. ELIJAH hose and SCDs in place. -Incentive spirometer at bedside. Patient is too confused to follow instructions this morning but encourage use as his mentation clears. Acute Delirium -confused this morning. Yesterday was completely appropriate. Orientated to self and year, unsure of where he is and does not remember having surgery. -Impulsive and trying to walk in the room without help. -Encourage having patient out of bed during daylight hours, open blinds, and frequent orientation. Encourage restful nights with limited interruptions as possible. -Limited narcotics Fall at home -PT/OT consult ordered, await recs. -Likely will benefit from short rehab stay after surgery as he lives alone DM II -On metformin 500 mg PO BID. Holding while in the hospital. -AC/HS accu checks ordered, Hemoglobin A1C 7.0. POC glucose 167 -Ordered low dose sliding scale insulin -Diabetic diet Subjective Date/time seen: 01/29/23 11:36 Interval history: This is Mr. Chapin, an 78 year old male who is admitted for a closed left hip fracture after falling at home. He has a PMH of DM for which he takes metformin and dyslipidemia on pravastatin. He is a 2 pack per day smoker and denies ETOH use. He currently lives at home alone and his daughter, Marla is his support person. He is a pleasant, thin man, who appears stated age. This morning he is feeling well and is anticipating his surgery with orthopedics. He states that his pain is well controlled with prn medications. He has been NPO since midnight and has remained on bedrest. Interval History: 01/29: Patient is POD 1 from left hip ORIF. He is seen sitting up in the chair this morning and appears confused. The tech is in the room and states that he keeps trying to walk without help. He is orientated to self and can tell me the month is January. Otherwise he does not know where his is and he does not remember having surgery yesterday. He says his hip hurt some last night but does not hurt this morning. He tells me he is eating and drinking without difficulty. He has no questions or concerns at this point. Review of Systems Review of Systems: All systems reviewed & are unremarkable except as noted in HPI and below Exam Narrative: Physical Exam: General: ?Confused, well appearing, thin, and appears stated age Neuro:?Alert and confused. Orientated to self and year. Disorientated to time, place, situation. PERRLA. Cranial nerves 2-12 intact without focal deficit. HEENT: normocephalic, atraumatic, mucous membranes moist. Neck supple without JVD or lymphadenopathy. Lungs:?Diminished anterior breath sounds bilaterally. Rate regular and unlabored. Heart: Regular rate and rhythm, normal S1-S2, on telemetry NSR.
[2023-01-29 12:20] LABS: Glucose Point of Care 193 mg/dl (65-105)
--- NOTE | 2023-01-29 12:22 | PCPTNOTE ---
On 01/29/23, the student, [Monet Nayak], provided care and completed [facility] documentation on this patient. I have reviewed the student's documentation and agree with the findings.
--- NOTE | 2023-01-29 13:39 | WPDANESPN ---
Anes - Prog Note Post-Op Date/Time: 01/29/23 13:39 Cardiovascular status: normal Respiratory status: normal Airway patency: baseline Mental status: baseline Post-Op hydration status: normal Vital Signs: Last Vital Signs Temp 36.9 C 01/29/23 09:28 Pulse 79 01/29/23 12:00 Resp 18 01/29/23 09:28 BP 130/60 01/29/23 09:28 Pulse Ox 96 01/29/23 09:28 O2 Del Method Room Air 01/29/23 08:19 O2 Flow Rate 3.5 01/29/23 05:56 Pain Score (VAS): 09/24 I/O: Intake & Output 01/28/23 01/29/23 01/29/23 23:59 07:59 15:59 Intake Total 900 1100 660 Output Total 775 300 Balance 125 800 660 Laboratory Tests 01/29/23 04:48 01/29/23 04:48 01/28/23 01/28/23 01/29/23 18:57 21:29 04:48 WBC 8.9 RBC 3.30 L Hgb 10.4 L Hct 31.2 L MCV 94.5 MCH 31.5 MCHC 33.3 RDW 13.3 Plt Count 191 MPV 10.8 H Immature Gran % (Auto) 0.3 Neut % (Auto) 80.8 H Lymph % (Auto) 6.8 L [place] % (Auto) 12.0 H Eos % (Auto) 0.0 Baso % (Auto) 0.1 L Lymph # (Auto) 0.61 L [place] # (Auto) 1.1 H Eos # (Auto) 0.0 Baso # (Auto) 0.0 Abs Immat Gran (auto) 0.03 Absolute Neuts (auto) 7.2 H Absolute Nucleated RBC 0.0 Nucleated RBC % 0.0 Sodium 134 L Potassium 4.4 Chloride 102 Carbon Dioxide 28 Anion Gap 4 L BUN 18 Creatinine 1.10 Estim Creat Clear Calc 44 Estimated GFR > 60 Glucose 183 H POC Capillary Glucose 164 H 222 H Calcium 8.0 L Magnesium 1.7 Total Bilirubin 0.5 AST 24 ALT 15 Alkaline Phosphatase 46 Total Protein 6.0 L Albumin 3.2 L 01/29/23 01/29/23 08:45 12:17 WBC RBC Hgb Hct MCV MCH MCHC RDW Plt Count MPV Immature Gran % (Auto) Neut % (Auto) Lymph % (Auto) [place] % (Auto) Eos % (Auto) Baso % (Auto) Lymph # (Auto) [place] # (Auto) Eos # (Auto) Baso # (Auto) Abs Immat Gran (auto) Absolute Neuts (auto) Absolute Nucleated RBC Nucleated RBC % Sodium Potassium Chloride Carbon Dioxide Anion Gap BUN Creatinine Estim Creat Clear Calc Estimated GFR Glucose POC Capillary Glucose 167 H 193 H Calcium Magnesium Total Bilirubin AST ALT Alkaline Phosphatase Total Protein Albumin Post-procedural complaints: none Patient Feedback: Patient satisfied with anesthetic care.
[2023-01-29] MEDS: NICOTINE (*PBKC) 21 MG PATCH 1 PATCH TRANSDERM (13:43)
[2023-01-29 16:55] LABS: Glucose Point of Care 225 mg/dl (65-105)
[2023-01-29 17:54] LABS: Glucose Point of Care 197 mg/dl (65-105)
[2023-01-29] MEDS: PRAVASTATIN SODIUM 20 MG TABLET PO (20:02)
[2023-01-29] MEDS: HYDROcodone/acetaminophen (*CRX) 7.5-325 MG TABLET 1 TAB PO (20:03)
[2023-01-29 20:22] LABS: Glucose Point of Care 241 mg/dl (65-105)
[2023-01-30] VITALS (9 sets, daily range): BP systolic 125–134; BP diastolic 58–69; PULSE 67–90; RESP 16–18; TEMP 36.6–37.1; O2SAT 95–98
[2023-01-30 05:04] LABS: Basophils Percent Auto 0.3 % (0.2-1.2); Eosinophils Absolute Auto 0.1 K/mm3 (0-0.3); Hematocrit 27.8 % (42.0-52.0); Hemoglobin 9.3 g/dL (14.0-18.0); Immature Granulocyte Absolute 0.04 K/mm3 (0.00-0.031); Immature Granulocyte Percent A 0.5 % (0-0.5); Lymphocytes Absolute Auto 1.26 K/mm3 (0.9-3.2); Mean Corpuscular HGB Conc 33.5 g/dl (32-36); Mean Corpuscular Hemoglobin 31.7 pg (26-34); Mean Corpuscular Volume 94.9 fl (80-100); Monocytes Absolute Auto 1.1 K/mm3 (0.1-0.6); Monocytes Percent Auto 14.1 % (2.6-8.5); Neutrophils Absolute Auto 5.4 K/mm3 (1.3-6.7); Neutrophils Percent Auto 68.1 % (45.5-73.1); Platelet Count Result 161 k/mm3 (150-375); Red Blood Count 2.93 M/mm3 (4.6-6.20); Red Cell Distribution Width 13.3 % (11.5-14.5); White Blood Count 7.9 K/mm3 (4.5-10.0)
[2023-01-30 05:15] LABS: Alanine Aminotransferase 11 U/L (6-50); Albumin Level 2.9 g/dL (3.5-5.1); Alkaline Phosphatase 46 U/L (38-126); Anion Gap -1 mmol/L (8-16); Aspartate Amino Transferase 20 U/L (17-59); Bilirubin,Total 0.5 mg/dL (0.2-1.3); Blood Urea Nitrogen 22 mg/dL (9-20); Calcium 7.8 mg/dL (8.4-10.2); Carbon Dioxide 32 mmol/L (22-30); Chloride 102 mmol/L (98-107); Estimated CRCL calculation 40 ml/min; Estimated Glomerular Filt Rate 58; Glucose 153 mg/dL (65-110); Potassium 4.2 mmol/L (3.4-5.0); Sodium 133 mmol/L (137-145)
[2023-01-30 05:32] LABS: Magnesium 1.8 mg/dL (1.6-2.3)
--- NOTE | 2023-01-30 07:46 | PM.IMPN ---
Progress Note: A&P Assessment and Plan (1) Diabetes 1.5, managed as type 2: Code(s): E13.9 - Other specified diabetes mellitus without complications Status: Inactive (2) Tobacco dependence: Code(s): F17.200 - Nicotine dependence, unspecified, uncomplicated Status: Inactive (3) Closed intertrochanteric fracture of left femur: Qualifiers: Encounter type: initial encounter Fracture alignment: displaced Qualified Code(s): S72.142A - Displaced intertrochanteric fracture of left femur, initial encounter for closed fracture Code(s): S72.142A - Displaced intertrochanteric fracture of left femur, initial encounter for closed fracture Status: Inactive (4) Fall: Qualifiers: Encounter type: subsequent encounter Qualified Code(s): W19.XXXD - Unspecified fall, subsequent encounter Code(s): W19.XXXA - Unspecified fall, initial encounter Status: Inactive Plan Displaced, closed fracture of left femur -POD 2 today with ortho for IM nail -weight bearing as tolerated with appropriate assist devices. Up to chair during daylight hours. -Ice and prn pain medications for pain control -Calcium 7.8 post surgery. Given age and fracture will start on Calcium/Vit D. - PT/OT are following and recommend acute inpatient rehab. -DVT prophylaxis with Lovenox, SCDs, and ELIJAH hose. -Incentive spirometer at bedside. Reviewed with patient how to use device and he successfully return demonstrated. Encouraged to use 10 x an hour while awake. Acute Delirium -resolved. A&Ox4 today. Does not remember being confused yesterday. -Encourage having patient out of bed during daylight hours, open blinds, and frequent orientation. Encourage restful nights with limited interruptions as possible. -Limited narcotics Fall at home -PT/OT consult. -Recommending acute rehab. Consult is in for care coordination to assist with placement. DM II -On metformin 500 mg PO BID. Holding while in the hospital. Will re-start at discharge. -AC/HS accu checks ordered, Hemoglobin A1C 7.0. POC glucose ranging 157-241. -Increased sliding scale insulin to start coverage at > 151. -Diabetic diet Nicotine dependence -patient has been counseled to quit but he is not ready. -nicotine patch 21 mg daily while admitted Subjective Date/time seen: 01/30/23 07:46 Interval history: This is Mr. Chapin, an 78 year old male who is admitted for a closed left hip fracture after falling at home. He has a PMH of DM for which he takes metformin and dyslipidemia on pravastatin. He is a 2 pack per day smoker and denies ETOH use. He currently lives at home alone and his daughter, Marla is his support person. He is a pleasant, thin man, who appears stated age. This morning he is feeling well and is anticipating his surgery with orthopedics. He states that his pain is well controlled with prn medications. He has been NPO since midnight and has remained on bedrest. Interval History: 01/29: Patient is POD 1 from left hip ORIF. He is seen sitting up in the chair this morning and appears confused. The tech is in the room and states that he keeps trying to walk without help. He is orientated to self and can tell me the month is January. Otherwise he does not know where his is and he does not remember having surgery yesterday. He says his hip hurt some last night but does not hurt this morning. He tells me he is eating and drinking without difficulty. He has no questions or concerns at this point. 01/30: Mr Chapin is doing much better today. He is found sleeping in bed comfortably. Upon awakening he is orientated x4. I asked him why he is here and he is able to recall falling off of his mower and fracturing his hip. He denies pain at rest and says that his pain has been controlled with his current regimen. Otherwise he is feeling well. Denies H/A, dizziness, SOB, CP, N/V/D. He has not yet had a bowel movement since admission but he is pass
[2023-01-30 08:44] LABS: Glucose Point of Care 157 mg/dl (65-105)
[2023-01-30] MEDS: INSULIN ASPART (*BKC) 100 UNITS/ML SUB-Q ×3 (08:46→17:34)
[2023-01-30] MEDS: SENNA/DOCUSATE SODIUM TABLET 2 TAB PO ×2 (08:49→17:32)
[2023-01-30] MEDS: CELECOXIB 200 MG CAPSULE PO (08:49)
[2023-01-30] MEDS: FAMOTIDINE 20 MG TABLET PO ×2 (08:49→19:58)
[2023-01-30] MEDS: polyethylene glycoL 3350 17 GM POWD.PACK PO (08:50)
[2023-01-30] MEDS: NICOTINE (*PBKC) 21 MG PATCH 1 PATCH TRANSDERM (08:50)
[2023-01-30] MEDS: ENOXAPARIN 40 MG/0.4 ML SYRINGE SUB-Q (08:50)
[2023-01-30 12:09] LABS: Glucose Point of Care 176 mg/dl (65-105)
--- NOTE | 2023-01-30 16:29 | PM.PNORT ---
Progress Note: A&P Assessment and Plan (1) Closed intertrochanteric fracture of left femur: Qualifiers: Encounter type: initial encounter Fracture alignment: displaced Qualified Code(s): S72.142A - Displaced intertrochanteric fracture of left femur, initial encounter for closed fracture Code(s): S72.142A - Displaced intertrochanteric fracture of left femur, initial encounter for closed fracture Status: Inactive Assessment and Plan: POD 2 DOING WELL. OK TO DC WHEN OK WITH MEDICINE. F/U IN 6 WEEKS Subjective Subjective Date/Time Seen: 01/30/23 16:29 Interval history: POD 2 DOING WELL. NO CALF PAIN Exam Extrem: Other: VSS AFEBRILE DRESSING NV INTACT NEG HOMANS SIGN CALF SOFT NON TENDER Objective Data Vital Signs Vital Signs: Vital Signs - 24 hr 01/29/23 17:28 01/29/23 19:32 01/29/23 19:50 Temperature 36.7 C 36.9 C Pulse Rate 87 85 Respiratory Rate 18 16 Blood Pressure 121/64 133/59 L Pulse Oximetry 99 97 Oxygen Delivery Room Air 01/29/23 20:46 01/29/23 20:00 01/29/23 23:32 Temperature 36.6 C Pulse Rate 84 95 84 Respiratory Rate 16 Blood Pressure 126/79 Pulse Oximetry 95 95 Oxygen Delivery Room Air 01/30/23 00:00 01/30/23 04:00 01/30/23 04:47 Temperature 37.1 C Pulse Rate 76 67 78 Respiratory Rate 16 Blood Pressure 134/69 Pulse Oximetry 95 Oxygen Delivery 01/30/23 08:45 01/30/23 08:00 01/30/23 10:10 Temperature Pulse Rate 82 Respiratory Rate Blood Pressure Pulse Oximetry Oxygen Delivery Room Air Room Air 01/30/23 12:00 01/30/23 14:47 Temperature 36.8 C Pulse Rate 86 85 Respiratory Rate 18 Blood Pressure 125/58 L Pulse Oximetry 97 Oxygen Delivery Intake/Output Intake/Output: Intake & Output 01/27/23 01/28/23 01/29/23 01/30/23 23:59 23:59 23:59 23:59 Intake Total 1069 230 6556 1230 Output Total 932 522 7594 500 Balance 775 -75 660 730 Meds/Results Medications: Active Medications Generic Name Dose Route Start Last Admin Trade Name Freq PRN Reason Stop Dose Admin Acetaminophen 650 mg 01/28/23 19:43 Acetaminophen 325 Mg Tablet PO Q6H PRN Mild Pain (1-3) or Fever Hydrocodone Bitart/Acetaminophen 1 tab 01/29/23 12:27 01/29/23 20:03 Hydrocodone/Acetaminophen (*Crx) 7.5-325 Mg Tablet PO 1 tab Q6H PRN Administration Pain Rated 4-6 Al Hydrox/Mg Hydrox/Simethicone 30 ml 01/27/23 23:27 Mag Hydrox/Al Hydrox/Simeth 30 Ml Udc PO Q6H PRN Indigestion Calcium Carbonate 500 mg 01/30/23 09:15 01/30/23 09:57 Calcium/Vitamin D 500 Mg Tablet PO 500 mg DAILY@0800 ERIC Administration Celecoxib 200 mg 01/29/23 08:00 01/30/23 08:49 Celecoxib 200 Mg Capsule PO 200 mg DAILY@0800 ERIC Administration Dextrose 12.5 gm 01/28/23 09:43 Dextrose 50% 25 Gm/50 Ml Syringe IV PUSH PRN PRN Hypoglycemia Protocol Diazepam 5 mg 01/28/23 19:43 01/28/23 21:24 Diazepam (*Crx) 5 Mg Tablet PO 5 mg Q8H PRN Administration Muscle Spasm Enoxaparin Sodium 40 mg 01/29/23 09:00 01/30/23 08:50 Enoxaparin 40 Mg/0.4 Ml Syringe SUB-Q 40 mg DAILY ERIC Administration Famotidine 20 mg 01/28/23 21:00 01/30/23 08:49 Famotidine 20 Mg Tablet PO 20 mg Q12HR ERIC Administration Glucagon 1 mg 01/28/23 09:43 Glucagon For Inj 1 Mg Vial IM PRN PRN Hypoglycemia Protocol Glucose 15 gm 01/28/23 09:43 Glucose Oral Gel 15 Gm Of Glucse In 37.5 Gm Tube PO PRN PRN Hypoglycemia Protocol Hydroxyzine Pamoate 50 mg 01/28/23 19:43 Hydroxyzine Pamoate 25 Mg Capsule PO Q4H PRN Itching Dextrose 1,000 mls @ 100 mls/hr 01/28/23 09:43 Dextrose 5% 1,000 Ml IVPB PRN PRN Hypoglycemia Protocol Insulin Aspart 4 - 8 units 01/30/23 08:00 01/30/23 12:11 Insulin Aspart (*Bkc) 100 Units/Ml SUB-Q 4 units TIDWM ERIC Administration Protocol N
[2023-01-30 17:15] LABS: Glucose Point of Care 211 mg/dl (65-105)
[2023-01-30] MEDS: HYDROcodone/acetaminophen (*CRX) 7.5-325 MG TABLET 1 TAB PO (17:33)
[2023-01-30] MEDS: PRAVASTATIN SODIUM 20 MG TABLET PO (19:58)
[2023-01-30 20:23] LABS: Glucose Point of Care 141 mg/dl (65-105)
[2023-01-31] VITALS (10 sets, daily range): BP systolic 115–145; BP diastolic 56–84; PULSE 71–103; RESP 14–20; TEMP 36.4–37; O2SAT 96–100
[2023-01-31 05:43] LABS: Basophils Percent Auto 0.4 % (0.2-1.2); Eosinophils Absolute Auto 0.1 K/mm3 (0-0.3); Eosinophils Percent Auto 1.2 % (0-4.4); Hematocrit 29.1 % (42.0-52.0); Hemoglobin 9.6 g/dL (14.0-18.0); Immature Granulocyte Absolute 0.03 K/mm3 (0.00-0.031); Immature Granulocyte Percent A 0.4 % (0-0.5); Lymphocytes Absolute Auto 1.05 K/mm3 (0.9-3.2); Lymphocytes Percent Auto 14.4 % (18.3-44.2); Mean Corpuscular Hemoglobin 30.9 pg (26-34); Mean Corpuscular Volume 93.6 fl (80-100); Mean Platelet Volume 10.8 fl (7.4-10.4); Monocytes Absolute Auto 0.9 K/mm3 (0.1-0.6); Neutrophils Absolute Auto 5.2 K/mm3 (1.3-6.7); Neutrophils Percent Auto 71.6 % (45.5-73.1); Platelet Count Result 192 k/mm3 (150-375); Red Blood Count 3.11 M/mm3 (4.6-6.20); Red Cell Distribution Width 13.2 % (11.5-14.5); White Blood Count 7.3 K/mm3 (4.5-10.0)
[2023-01-31 06:03] LABS: Alanine Aminotransferase 12 U/L (6-50); Alkaline Phosphatase 49 U/L (38-126); Anion Gap 2 mmol/L (8-16); Aspartate Amino Transferase 21 U/L (17-59); Bilirubin,Total 0.6 mg/dL (0.2-1.3); Blood Urea Nitrogen 22 mg/dL (9-20); Calcium 8.1 mg/dL (8.4-10.2); Carbon Dioxide 32 mmol/L (22-30); Chloride 99 mmol/L (98-107); Estimated CRCL calculation 44 ml/min; Estimated Glomerular Filt Rate > 60; Glucose 178 mg/dL (65-110); Potassium 4.3 mmol/L (3.4-5.0); Sodium 133 mmol/L (137-145)
[2023-01-31 08:43] LABS: Glucose Point of Care 158 mg/dl (65-105)
[2023-01-31] MEDS: FAMOTIDINE 20 MG TABLET PO ×2 (10:17→20:39)
[2023-01-31] MEDS: SENNA/DOCUSATE SODIUM TABLET 2 TAB PO ×2 (10:17→18:14)
[2023-01-31] MEDS: CELECOXIB 200 MG CAPSULE PO (10:17)
[2023-01-31] MEDS: NICOTINE (*PBKC) 21 MG PATCH 1 PATCH TRANSDERM (10:18)
[2023-01-31] MEDS: polyethylene glycoL 3350 17 GM POWD.PACK PO (10:18)
[2023-01-31] MEDS: ENOXAPARIN 40 MG/0.4 ML SYRINGE SUB-Q (10:18)
[2023-01-31 12:01] LABS: Glucose Point of Care 253 mg/dl (65-105)
--- NOTE | 2023-01-31 12:04 | PCPTNOTE ---
On 01/31/23, the student, MIGUEL Persaud, provided care and completed [facility] documentation on this patient. I have reviewed the student's documentation and agree with the findings.
[2023-01-31] MEDS: INSULIN ASPART (*BKC) 100 UNITS/ML SUB-Q ×2 (12:31→18:14)
--- NOTE | 2023-01-31 14:48 | PM.IMPN ---
Progress Note: A&P Assessment and Plan (1) Diabetes 1.5, managed as type 2: Code(s): E13.9 - Other specified diabetes mellitus without complications Status: Inactive (2) Tobacco dependence: Code(s): F17.200 - Nicotine dependence, unspecified, uncomplicated Status: Inactive (3) Closed intertrochanteric fracture of left femur: Qualifiers: Encounter type: initial encounter Fracture alignment: displaced Qualified Code(s): S72.142A - Displaced intertrochanteric fracture of left femur, initial encounter for closed fracture Code(s): S72.142A - Displaced intertrochanteric fracture of left femur, initial encounter for closed fracture Status: Inactive (4) Fall: Qualifiers: Encounter type: subsequent encounter Qualified Code(s): W19.XXXD - Unspecified fall, subsequent encounter Code(s): W19.XXXA - Unspecified fall, initial encounter Status: Inactive Plan Displaced, closed fracture of left femur -POD 3 today with ortho for IM nail -weight bearing as tolerated with appropriate assist devices. Up to chair during daylight hours. -Ice and prn pain medications for pain control -Calcium 7.8 post surgery. Given age and fracture will start on Calcium/Vit D. - PT/OT are following and recommend acute inpatient rehab. -DVT prophylaxis with Lovenox, SCDs, and ELIJAH hose. -Incentive spirometer at bedside. Reviewed with patient how to use device and he successfully return demonstrated. Encouraged to use 10 x an hour while awake. Acute Delirium -resolved. A&Ox4 today. Does not remember being confused yesterday. -Encourage having patient out of bed during daylight hours, open blinds, and frequent orientation. Encourage restful nights with limited interruptions as possible. -Limited narcotics Fall at home -PT/OT consult. -Recommending acute rehab. Consult is in for care coordination to assist with placement. Family is requesting [facility] swing bed, requests have been sent for pre-auth. DM II -On metformin 500 mg PO BID. Holding while in the hospital. Will re-start at discharge. -AC/HS accu checks ordered, Hemoglobin A1C 7.0. POC glucose ranging 157-241. -Increased sliding scale insulin to start coverage at > 151. -Diabetic diet Nicotine dependence -patient has been counseled to quit but he is not ready. -nicotine patch 21 mg daily while admitted Subjective Date/time seen: 01/31/23 14:48 Interval history: This is Mr. Chapin, an 78 year old male who is admitted for a closed left hip fracture after falling at home. He has a PMH of DM for which he takes metformin and dyslipidemia on pravastatin. He is a 2 pack per day smoker and denies ETOH use. He currently lives at home alone and his daughter, Marla is his support person. He is a pleasant, thin man, who appears stated age. This morning he is feeling well and is anticipating his surgery with orthopedics. He states that his pain is well controlled with prn medications. He has been NPO since midnight and has remained on bedrest. Interval History: 01/29: Patient is POD 1 from left hip ORIF. He is seen sitting up in the chair this morning and appears confused. The tech is in the room and states that he keeps trying to walk without help. He is orientated to self and can tell me the month is January. Otherwise he does not know where his is and he does not remember having surgery yesterday. He says his hip hurt some last night but does not hurt this morning. He tells me he is eating and drinking without difficulty. He has no questions or concerns at this point. 01/30: Mr Chapin is doing much better today. He is found sleeping in bed comfortably. Upon awakening he is orientated x4. I asked him why he is here and he is able to recall falling off of his mower and fracturing his hip. He denies pain at rest and says that his pain has been controlled with his current regimen. Otherwise he is feeling well. Denies H/A, dizziness, SOB
[2023-01-31 17:24] LABS: Glucose Point of Care 165 mg/dl (65-105)
[2023-01-31] MEDS: PRAVASTATIN SODIUM 20 MG TABLET PO (20:39)
[2023-01-31] MEDS: HYDROcodone/acetaminophen (*CRX) 7.5-325 MG TABLET 1 TAB PO (20:41)
[2023-01-31 21:13] LABS: Glucose Point of Care 231 mg/dl (65-105)
[2023-02-01] VITALS (9 sets, daily range): BP systolic 126–132; BP diastolic 62–87; PULSE 66–101; RESP 16; TEMP 36.4–36.8; O2SAT 95–97
[2023-02-01 05:46] LABS: Basophils Percent Auto 0.4 % (0.2-1.2); Eosinophils Absolute Auto 0.2 K/mm3 (0-0.3); Eosinophils Percent Auto 3.2 % (0-4.4); Hematocrit 30.6 % (42.0-52.0); Hemoglobin 10.3 g/dL (14.0-18.0); Immature Granulocyte Absolute 0.03 K/mm3 (0.00-0.031); Immature Granulocyte Percent A 0.4 % (0-0.5); Lymphocytes Absolute Auto 1.53 K/mm3 (0.9-3.2); Lymphocytes Percent Auto 21.4 % (18.3-44.2); Mean Corpuscular HGB Conc 33.7 g/dl (32-36); Mean Corpuscular Hemoglobin 31.8 pg (26-34); Mean Corpuscular Volume 94.4 fl (80-100); Mean Platelet Volume 10.7 fl (7.4-10.4); Monocytes Absolute Auto 0.7 K/mm3 (0.1-0.6); Monocytes Percent Auto 10.3 % (2.6-8.5); Neutrophils Absolute Auto 4.6 K/mm3 (1.3-6.7); Neutrophils Percent Auto 64.3 % (45.5-73.1); Platelet Count Result 225 k/mm3 (150-375); Red Blood Count 3.24 M/mm3 (4.6-6.20); Red Cell Distribution Width 13.1 % (11.5-14.5); White Blood Count 7.2 K/mm3 (4.5-10.0)
[2023-02-01 06:02] LABS: Anion Gap 1 mmol/L (8-16); Blood Urea Nitrogen 22 mg/dL (9-20); Calcium 8.5 mg/dL (8.4-10.2); Carbon Dioxide 33 mmol/L (22-30); Chloride 101 mmol/L (98-107); Estimated CRCL calculation 40 ml/min; Estimated Glomerular Filt Rate 58; Glucose 187 mg/dL (65-110); Potassium 5.2 mmol/L (3.4-5.0); Sodium 135 mmol/L (137-145)
[2023-02-01 08:07] LABS: Glucose Point of Care 185 mg/dl (65-105)
[2023-02-01] MEDS: SENNA/DOCUSATE SODIUM TABLET 2 TAB PO ×2 (08:35→17:33)
[2023-02-01] MEDS: ENOXAPARIN 40 MG/0.4 ML SYRINGE SUB-Q (08:35)
[2023-02-01] MEDS: FAMOTIDINE 20 MG TABLET PO (08:36)
[2023-02-01] MEDS: polyethylene glycoL 3350 17 GM POWD.PACK PO (08:36)
[2023-02-01] MEDS: NICOTINE (*PBKC) 21 MG PATCH 1 PATCH TRANSDERM (08:36)
[2023-02-01] MEDS: INSULIN ASPART (*BKC) 100 UNITS/ML SUB-Q ×2 (08:36→12:35)
[2023-02-01] MEDS: CELECOXIB 200 MG CAPSULE PO (08:36)
[2023-02-01] MEDS: ACETAMINOPHEN 325 MG TABLET 650 MG PO (08:46)
--- NOTE | 2023-02-01 09:42 | PM.PNORT ---
Progress Note: A&P Assessment and Plan (1) Closed intertrochanteric fracture of left femur: Qualifiers: Encounter type: initial encounter Fracture alignment: displaced Qualified Code(s): S72.142A - Displaced intertrochanteric fracture of left femur, initial encounter for closed fracture Code(s): S72.142A - Displaced intertrochanteric fracture of left femur, initial encounter for closed fracture Status: Acute Assessment and Plan: POD #4 : INSERTION GAMMA NORAH LEFT HIP Continue PT/OT. WBAT. Walker. HIGH FALL RISK. Continue pain control. Ice hip. Protect skin. DVT prophylaxis with Lovenox. SCDs. Incentive Spirometry Use reviewed. Monitor Dressing. Change prior to discharge. Bowel Regimen. Dispo: Swing Bed pending care coordination arrangements and medical clearance. Pain medication provided for outpatient use. Follow up appt scheduled. DVT prophylaxis arranged. (2) Diabetes 1.5, managed as type 2: Code(s): E13.9 - Other specified diabetes mellitus without complications Status: Inactive (3) Fall: Qualifiers: Encounter type: subsequent encounter Qualified Code(s): W19.XXXD - Unspecified fall, subsequent encounter Code(s): W19.XXXA - Unspecified fall, initial encounter Status: Inactive (4) Tobacco dependence: Code(s): F17.200 - Nicotine dependence, unspecified, uncomplicated Status: Inactive Time Spent With Patient Time with patient: less than 15 minutes Subjective Subjective Date/Time Seen: 02/01/23 09:42 Post Op day: 4 Interval history: POD #4: INSERTION GAMMA NORAH LEFT HIP Patient doing well. Sitting up in chair at time of exam. No new concerns. Hopeful for discharge. Review of Systems Constitutional: Constitutional: Denies chills, Denies fatigue, Denies fever(s), Denies night sweats and Denies weakness Cardiovascular: Cardiovascular: Denies chest pain, Denies lightheadedness, Denies palpitations and Denies dyspnea Respiratory: Respiratory: Denies cough, Denies dyspnea and Denies wheezing Gastrointestinal: Gastrointestinal: Denies abdominal pain, Denies diarrhea, Denies nausea and Denies vomiting Musculoskeletal: Musculoskeletal: Reports arthralgias (left hip ), Reports joint swelling (left hip ) and Denies numbness Neurologic: Denies numbness and Denies weakness Endocrine: Endocrine: Denies fatigue and Denies palpitations Allergic/Immunologic: Allergic/Immunologic: Denies wheezing Exam Const: General: comfortable and no acute distress Orientation/consciousness: patient oriented x3 Limitations: no limitations Resp: Effort & Inspection: normal respiratory effort Cardio: Rate: regular rate Rhythm: regular rhythm GI: Inspection: non-distended Skin: General skin exam: normal color and wounds noted (incision left hip C/D/I ) Wounds: wounds noted (incision left hip C/D/I ) Neuro: General: patient oriented x3 Extrem: Left lower extremity: hip/thigh Details: tenderness Location: of the hip Location: laterally and anteriorly, swelling (thigh soft ) Location: of the hip (lateral. ), abnormal ROM (limitations with internal/external rotation and flexion/extension due to recent surgical intervention ) and other (incision lateral hip c/d/i. ), knee Details: normal to inspection and normal ROM; no tenderness and no swelling, lower leg (Negative Evan's Sign ) Details: no edema, ankle (+ankle dorsiflexion/plantarflexion ) Details: normal to inspection, no edema and normal ROM; no tenderness, no swelling and no warmth and foot Details: normal capillary refill, toes with normal ROM, vascular exam Details: dorsalis pedis pulse present and motor-sensory exam light-touch normal in all toes; no tenderness, no ecchymosis and no crepitus Psych: Mental Status: mental status grossly normal Affect: normal affect Objective Data Vital Signs Vital Signs: Vital Signs - 24 hr 01/31/23 10:20 01/31/23 14:05 01/31/23 10:20 Temperature 3
--- NOTE | 2023-02-01 12:29 | PM.DS ---
DS: Admitting Diagnosis Discharge Date February 01 Admitting Diagnosis Closed intertrochanteric fracture of left femur DS: Discharge Diagnosis Discharge Diagnosis (1) Diabetes 1.5, managed as type 2: Code(s): E13.9 - Other specified diabetes mellitus without complications Status: Inactive (2) Tobacco dependence: Code(s): F17.200 - Nicotine dependence, unspecified, uncomplicated Status: Inactive (3) Closed intertrochanteric fracture of left femur: Qualifiers: Encounter type: initial encounter Fracture alignment: displaced Qualified Code(s): S72.142A - Displaced intertrochanteric fracture of left femur, initial encounter for closed fracture Code(s): S72.142A - Displaced intertrochanteric fracture of left femur, initial encounter for closed fracture Status: Acute (4) Fall: Qualifiers: Encounter type: subsequent encounter Qualified Code(s): W19.XXXD - Unspecified fall, subsequent encounter Code(s): W19.XXXA - Unspecified fall, initial encounter Status: Inactive Plan Discharge to [facility] today for continued PT/OT. Rec's from Ortho below: Continue PT/OT. WBAT. Walker. HIGH FALL RISK. Continue pain control. Ice hip. Protect skin. DVT prophylaxis with Lovenox. SCDs. Incentive Spirometry Use reviewed. Monitor Dressing. Change prior to discharge. Bowel Regimen. He has been receiving daily miralax and senna/docusate sodium. Passing flatus and tolerating a diet. Anticipate bowel movement soon. Dispo: Swing Bed pending care coordination arrangements and medical clearance. Pain medication provided for outpatient use. Follow up appt scheduled. DVT prophylaxis arranged. DS: Summary Hospital Course Reason for hospitalization: fall resulting with fracture Hospital Course: You were admitted 01/27 after falling at home after mowing. Your fall resulted in a left hip fracture. Dr. Reed preformed surgery on 01/28 with placement of a gamma laura. You remained inpatient with an unremarkable hospital course until 02/01 when we discharged you to [facility] for PT/OT. Status at Discharge Functional status at discharge: uses cane/walker Time Spent with Patient Time attestation: Total time spent providing and/or coordinating discharge services: 31 minutes Exam Narrative: Physical Exam: General: ?Alert and orientated x 4, well appearing, thin, and appears stated age Neuro:?Alert and orientated x4. PERRLA. Cranial nerves 2-12 intact without focal deficit. HEENT: normocephalic, atraumatic, mucous membranes moist. Neck supple without JVD or lymphadenopathy. Lungs:?Diminished anterior breath sounds bilaterally, coarse, rhonchi bilateral lower lobes posteriorly clears with cough. Rate regular and unlabored. Heart: Regular rate and rhythm, normal S1-S2, on telemetry NSR. No murmurs/clicks on auscultation. PMI nondisplaced. Abdomen: ?soft, non-distended and non-tender and hypoactive BS x4 : expected male anatomy Extremities: Warm upper extremities and bilateral lower extremities. Left hip with non-pitting edema. Pulses: 2/1.?Bilateral lower extremity pulses are weak but palpable. Skin: Intact, without rash or lesions. Tattoos present. Surgical incision to left lateral hip x 2 with surgical dressings in place are C/D/I. Psych: pleasant, cooperative. DS: Data Data Completed and Pending Labs on day of discharge: Labs from last 24 hours 02/01/23 02/01/23 01/31/23 08:03 05:12 20:38 WBC 7.2 RBC 3.24 L Hgb 10.3 L Hct 30.6 L MCV 94.4 MCH 31.8 MCHC 33.7 RDW 13.1 Plt Count 225 MPV 10.7 H Immature Gran % (Auto) 0.4 Neut % (Auto) 64.3 Lymph % (Auto) 21.4 [place] % (Auto) 10.3 H Eos % (Auto) 3.2 Baso % (Auto) 0.4 Lymph # (Auto) 1.53 [place] # (Auto) 0.7 H Eos # (Auto) 0.2 Baso # (Auto) 0.0 Abs Immat Gran (auto) 0.03 Absolute Neuts (auto) 4.6 Absolute Nucleated RBC 0.0 Nucleated RB
[2023-02-01 12:34] LABS: Glucose Point of Care 241 mg/dl (65-105)
[2023-02-01 13:08] LABS: Potassium 4.9 mmol/L (3.4-5.0)
[2023-02-01 17:02] LABS: Glucose Point of Care 90 mg/dl (65-105)
== END 2023-02-01 19:45 | disposition swing bed (61) | DRG 482 ==
LOC: ANHED 19:20 → ANH2MED 22:20
PROVIDERS: Orthopaedic Surgery; Admitting Provider Internal Medicine; Emergency Provider Emergency Medicine; PCP Internal Medicine; Visit Provider Nurse Practitioner Acute Care
PROC: 0QS736Z Reposition Left Upper Femur with Intramedullary Internal Fixation Device, Percutaneous Approach (ICD-10-PCS; CPT 27245; principal; 2023-01-28 15:00)
DX: S72.142A Displaced intertrochanteric fracture of left femur, initial encounter for closed fracture (principal); W18.30XA Fall on same level, unspecified, initial encounter; E13.9 Other specified diabetes mellitus without complications; R41.0 Disorientation, unspecified; F17.210 Nicotine dependence, cigarettes, uncomplicated
CPT/HCPCS: 36415; 71045; 73502; 80048; 80053; 82948; 83036; 83735; 84132; 85025; 85610; 85730; 96361; 96374; 97110; 97116; 97161; 97165; 97530; 97535; 99199; 99285; A9270; C1713; J0690; J1100; J1170; J1650; J1815; J2370; J2405; J2704; J3010; J7030; J7120

== ENCOUNTER 2023-02-01 20:22 | Inpatient (IN) | payer MEDICARE, SELFPAY ==
[2023-02-01] MEDS: PRAVASTATIN SODIUM 20 MG TABLET PO ×2 (21:11→21:15)
[2023-02-01 21:16] LABS: Glucose Point of Care 196 mg/dl (65-105)
[2023-02-01 21:50] VITALS: BMI 20.7
[2023-02-01 22:10] VITALS: PULSE 78; RESP 16; O2SAT 100
[2023-02-02] VITALS: BP 158/77; PULSE 78; RESP 16; TEMP 36.1; O2SAT 100
--- NOTE | 2023-02-02 00:36 | PC.NURSE ---
On 02/02/23, the MANAGER RESORT, [ Amarilis Chance], provided care and completed [facility] documentation on this patient. I have reviewed the MANAGER RESORT's documentation and agree with the findings.
[2023-02-02 05:35] LABS: Basophils Absolute Auto 0.03 K/mm3 (0.00-0.10); Basophils Percent Auto 0.5 % (0.0-1.0); Eosinophils Absolute Auto 0.32 K/mm3 (0.02-0.50); Hematocrit 30.4 % (37.0-46.0); Hemoglobin 10.1 g/dL (12.4-15.3); Immature Granulocyte Absolute 0.02 K/mm3 (0.00-0.00); Immature Granulocyte Percent A 0.3 % (0.0-0.0); Lymphocytes Absolute Auto 1.44 K/mm3 (1.10-4.50); Lymphocytes Percent Auto 22.4 % (18.0-42.0); Mean Corpuscular HGB Conc 33.2 g/dL (32.0-36.0); Mean Corpuscular Hemoglobin 31.2 pg (27.0-31.0); Mean Corpuscular Volume 93.8 fL (78.0-102.0); Monocytes Absolute Auto 0.62 K/mm3 (0.10-0.90); Monocytes Percent Auto 9.7 % (2.0-11.0); Neutrophils Percent Auto 62.1 % (50.0-70.0); Platelet Count Result 255 K/mm3 (150-420); Red Blood Count 3.24 M/mm3 (4.70-6.10); Red Cell Distribution Width 12.9 % (11.6-14.4); White Blood Count 6.4 K/mm3 (4.8-10.8)
[2023-02-02 05:56] LABS: Alanine Aminotransferase 14 U/L (16-63); Albumin Level 2.6 g/dL (3.4-5.0); Alkaline Phosphatase 62 U/L (46-116); Anion Gap 6 mmol/L (8-16); Aspartate Amino Transferase 14 U/L (15-37); Bilirubin,Total 0.5 mg/dL (0.00-1.00); Blood Urea Nitrogen 22 mg/dL (7-18); Carbon Dioxide 29 mmol/L (21-32); Chloride 103 mmol/L (98-108); Estimated CRCL calculation 44 ml/min; Estimated Glomerular Filt Rate > 60; Glucose 184 mg/dL (70-99); Magnesium 1.7 mg/dL (1.8-2.4); Osmolality Calculated 294 mOsm/kg (285-295); Potassium 4.9 mmol/L (3.5-5.1); Sodium 138 mmol/L (136-145); Total Protein 5.9 g/dL (6.4-8.2)
[2023-02-02 08:00] VITALS: BP 134/74; PULSE 78; RESP 18; TEMP 36.6; O2SAT 95
--- NOTE | 2023-02-02 08:22 | PM.IMHP ---
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 Patient with a past medical history significant for type diabetes mellitus, dyslipidemia, tobacco dependence. Patient has arrived her so that he is able to have physical therapy so he is able to return home . Patient denies needing anything at this time and his would looks to be health and healing with no drainage noted at this time . Patient has been able to eat and drink, has remained afebrile and we will continue to monitor. Review of Systems Review of Systems: Hip fracture repair All systems reviewed & are unremarkable except as noted in HPI and below PMFSH Past Medical History Medical History (Updated 02/02/23 @ 12:39 by Kayla Alves NP) Closed intertrochanteric fracture of left femur Diabetes 1.5, managed as type 2 Fall Injury of left hand History of left hand injury as a kid, limited mobility Tobacco dependence Family History Family History Father Diabetes mellitus Dementia Mother Diabetes mellitus FH: CABG (coronary artery bypass surgery) Sibling Diabetes mellitus Sibling Diabetes mellitus Other Family history of arthritis Family history of lung cancer Social History Social History Smoking packs per day: 2 Smoking cigarettes per day: 40.0 Years smoked: 66 Smoking pack-years: 132.00 Smoking status: Current every day smoker Tobacco type: cigarettes Alcohol intake: never Substance use: never Substance use type: does not use Lack of Transportation: No Lack of Food: Often True Current Housing: I Have Housing Concerned About Future Housing: No Difficulty Paying Gas/Electric Bills: YES Difficulty Paying for Meds: YES Currently Unemployed: No Education: High School Diploma/GED Difficulty w/ Childcare or Family Care: No Spiritual care concerns: No Meds Home Medications and Allergies Home Medications Medication Instructions Recorded Confirmed Type metformin 500 mg tablet,extended 500 mg PO BID 01/27/23 02/01/23 History release 24 hr pravastatin 20 mg tablet 20 mg PO HS 01/27/23 02/01/23 History enoxaparin 40 mg/0.4 mL 40 mg (0.4 mL) subcut DAILY 20 02/01/23 02/01/23 Rx subcutaneous syringe (Lovenox) days #8 mL hydrocodone 5 mg-acetaminophen 325 1 tablet PO Q4H PRN pain #40 tabs 02/01/23 02/01/23 Rx mg tablet Allergies Allergy/AdvReac Type Severity Reaction Status Date / Time No Known Allergies Allergy Verified 01/28/23 14:11 Vital Signs Vital Signs - 24 hr 02/01/23 22:10 02/02/23 00:00 Temperature 96.9 F L Pulse Rate 78 78 Respiratory Rate 16 16 Blood Pressure 158/77 H Pulse Oximetry 100 100 Oxygen Delivery Room Air Room Air Exam HENMT: Ears: TM's normal bilaterally Eyes: General: appearance normal, both eyes and all related structures Resp: Effort & Inspection: normal respiratory effort Cardio: Rate: regular rate Extrem: General: normal to inspection Psych: Mental Status: mental status grossly normal H&P: Results Labs Labs: Short CBC 02/02/23 Range/Units 05:20 WBC 6.4 (4.8-10.8) K/mm3 Hgb 10.1 L (12.4-15.3) g/dL Hct 30.4 L (37.0-46.0) % Plt Count 255 (150-420) K/mm3 BMP 02/02/23 05:20 Sodium 138 Potassium 4.9 Chloride 103 Carbon Dioxide 29 BUN 22 H Creatinine 1.09 Glucose 184 H Calcium 9.0 Liver Function 02/02/23 Range/Units 05:20 Total Bilirubin 0.5 (0.00-1.00) mg/dL AST 14 L (15-37) U/L ALT 14 L (16-63) U/L Alkaline Phosphatase 62 (46-116) U/L Albumin 2.6 L (3.4-5.0) g/dL Assessment and Plan Assessment and plan (1) Closed intertrochanteric fracture of left femur: Q
[2023-02-02] MEDS: metFORMIN HCL XR 500 MG TAB.SR.24H PO ×2 (08:46→17:09)
[2023-02-02] MEDS: ENOXAPARIN 40 MG/0.4 ML SYRINGE SUB-Q (08:47)
[2023-02-02 11:29] LABS: Glucose Point of Care 216 mg/dl (65-105)
[2023-02-02] MEDS: INSULIN HUMAN LISPRO (*BKC) 1,000 UNITS/10 ML VIAL SUB-Q (11:40)
--- NOTE | 2023-02-02 13:22 | PC.NURSE ---
1230 patient finishes lunch and gets up and attempts to put self in bed. claims he knows how to use call light. when asked how to use, he claims you press red button every time. claims he just doesn't want to bother us. has attempted to get up and do for self several times today. keeps setting alarms off. moved to 206.
[2023-02-02 16:00] VITALS: BP 128/72; PULSE 78; RESP 20; TEMP 36.1; O2SAT 95
[2023-02-02 17:13] LABS: Glucose Point of Care 135 mg/dl (65-105)
[2023-02-02 20:00] VITALS: PULSE 78; RESP 20; O2SAT 95
[2023-02-02 20:49] LABS: Glucose Point of Care 248 mg/dl (65-105)
[2023-02-02] MEDS: PRAVASTATIN SODIUM 20 MG TABLET PO (21:37)
[2023-02-03] VITALS: BP 131/68; PULSE 91; RESP 16; TEMP 36.6; O2SAT 95
--- NOTE | 2023-02-03 05:27 | PC.NURSE ---
On 02/03/23, the WAIST PLEATER, [ Amarilis Chance], provided care and completed [facility] documentation on this patient. I have reviewed the WAIST PLEATER's documentation and agree with the findings.
[2023-02-03 07:35] VITALS: BP 135/69; PULSE 85; RESP 18; TEMP 36.5; O2SAT 95
[2023-02-03 08:01] LABS: Glucose Point of Care 161 mg/dl (65-105)
[2023-02-03] MEDS: metFORMIN HCL XR 500 MG TAB.SR.24H PO ×2 (09:19→16:35)
[2023-02-03] MEDS: ENOXAPARIN 40 MG/0.4 ML SYRINGE SUB-Q (09:19)
[2023-02-03 11:57] LABS: Glucose Point of Care 311 mg/dl (65-105)
[2023-02-03] MEDS: INSULIN HUMAN LISPRO (*BKC) 1,000 UNITS/10 ML VIAL SUB-Q (11:57)
[2023-02-03 16:30] VITALS: BP 106/69; PULSE 91; RESP 18; TEMP 36.6; O2SAT 97
[2023-02-03] MEDS: HYDROcodone/acetaminophen (*CRX) 5-325 MG TABLET 1 TAB PO ×2 (16:35→21:16)
[2023-02-03 16:44] LABS: Glucose Point of Care 112 mg/dl (65-105)
[2023-02-03 20:00] VITALS: PULSE 91; RESP 18; O2SAT 97
[2023-02-03] MEDS: PRAVASTATIN SODIUM 20 MG TABLET PO (21:16)
[2023-02-03 21:21] LABS: Glucose Point of Care 234 mg/dl (65-105)
[2023-02-04] VITALS: BP 116/64; PULSE 93; RESP 16; TEMP 36.9; O2SAT 95
[2023-02-04 07:45] VITALS: BP 104/59; PULSE 91; RESP 18; TEMP 36.6; O2SAT 95
[2023-02-04] MEDS: HYDROcodone/acetaminophen (*CRX) 5-325 MG TABLET 1 TAB PO ×2 (07:48→18:24)
[2023-02-04] MEDS: metFORMIN HCL XR 500 MG TAB.SR.24H PO ×2 (07:48→18:24)
[2023-02-04] MEDS: ENOXAPARIN 40 MG/0.4 ML SYRINGE SUB-Q (07:48)
[2023-02-04 07:54] LABS: Glucose Point of Care 182 mg/dl (65-105)
[2023-02-04 11:43] LABS: Glucose Point of Care 272 mg/dl (65-105)
[2023-02-04] MEDS: INSULIN HUMAN LISPRO (*BKC) 1,000 UNITS/10 ML VIAL SUB-Q (12:04)
[2023-02-04 16:30] VITALS: BP 108/67; PULSE 80; RESP 18; TEMP 36.4; O2SAT 95
[2023-02-04 17:08] LABS: Glucose Point of Care 202 mg/dl (65-105)
[2023-02-04] MEDS: PRAVASTATIN SODIUM 20 MG TABLET PO (20:34)
[2023-02-04] MEDS: ACETAMINOPHEN 325 MG TABLET 650 MG PO (20:34)
[2023-02-04 20:36] LABS: Glucose Point of Care 282 mg/dl (65-105)
[2023-02-04 23:40] VITALS: BP 125/69; PULSE 68; RESP 18; TEMP 36.6; O2SAT 95
[2023-02-05 07:41] LABS: Glucose Point of Care 201 mg/dl (65-105)
[2023-02-05 08:00] VITALS: BP 114/63; PULSE 91; RESP 18; TEMP 36.6; O2SAT 93
[2023-02-05] MEDS: ENOXAPARIN 40 MG/0.4 ML SYRINGE SUB-Q (08:15)
[2023-02-05] MEDS: INSULIN HUMAN LISPRO (*BKC) 1,000 UNITS/10 ML VIAL SUB-Q ×3 (08:15→17:02)
[2023-02-05] MEDS: metFORMIN HCL XR 500 MG TAB.SR.24H PO ×2 (08:15→17:03)
[2023-02-05 11:59] LABS: Glucose Point of Care 318 mg/dl (65-105)
[2023-02-05 16:00] VITALS: BP 124/68; PULSE 64; RESP 16; TEMP 35.8; O2SAT 96
[2023-02-05 16:48] LABS: Glucose Point of Care 235 mg/dl (65-105)
[2023-02-05 20:00] VITALS: PULSE 64; RESP 16; O2SAT 96
[2023-02-05] MEDS: ACETAMINOPHEN 325 MG TABLET 650 MG PO (20:50)
[2023-02-05] MEDS: PRAVASTATIN SODIUM 20 MG TABLET PO (20:50)
[2023-02-05 20:57] LABS: Glucose Point of Care 177 mg/dl (65-105)
[2023-02-06] VITALS: BP 109/62; PULSE 100; RESP 16; TEMP 36.1; O2SAT 95
--- NOTE | 2023-02-06 06:37 | PC.NURSE ---
MANAGER INTENSIVE CARE documentation verified and reviewed.
[2023-02-06 08:00] VITALS: BP 134/72; PULSE 78; RESP 16; TEMP 36.2; O2SAT 95
[2023-02-06 08:11] LABS: Glucose Point of Care 172 mg/dl (65-105)
[2023-02-06] MEDS: metFORMIN HCL XR 500 MG TAB.SR.24H PO ×2 (08:40→17:06)
[2023-02-06] MEDS: ENOXAPARIN 40 MG/0.4 ML SYRINGE SUB-Q (08:41)
[2023-02-06] MEDS: HYDROcodone/acetaminophen (*CRX) 5-325 MG TABLET 1 TAB PO ×2 (08:46→20:04)
[2023-02-06 12:03] LABS: Glucose Point of Care 208 mg/dl (65-105)
[2023-02-06] MEDS: INSULIN HUMAN LISPRO (*BKC) 1,000 UNITS/10 ML VIAL SUB-Q (12:03)
[2023-02-06 15:26] VITALS: BP 124/74; PULSE 78; RESP 18; TEMP 36.6; O2SAT 96
[2023-02-06 20:00] VITALS: PULSE 78; RESP 18; O2SAT 96
[2023-02-06] MEDS: PRAVASTATIN SODIUM 20 MG TABLET PO (20:04)
[2023-02-06 22:16] LABS: Glucose Point of Care 184 mg/dl (65-105)
[2023-02-06 22:16] LABS: Glucose Point of Care 164 mg/dl (65-105)
[2023-02-06 23:59] VITALS: BP 119/61; PULSE 76; RESP 16; TEMP 36.3; O2SAT 94
--- NOTE | 2023-02-07 06:33 | PC.NURSE ---
SMOKING PIPE LINER documentation verified and reviewed.
[2023-02-07 07:53] LABS: Glucose Point of Care 172 mg/dl (65-105)
[2023-02-07 08:00] VITALS: BP 114/59; PULSE 85; RESP 14; TEMP 36.6; O2SAT 93
[2023-02-07] MEDS: ENOXAPARIN 40 MG/0.4 ML SYRINGE SUB-Q (08:35)
[2023-02-07] MEDS: metFORMIN HCL XR 500 MG TAB.SR.24H PO ×2 (08:35→16:59)
[2023-02-07 12:03] LABS: Glucose Point of Care 265 mg/dl (65-105)
[2023-02-07] MEDS: INSULIN HUMAN LISPRO (*BKC) 1,000 UNITS/10 ML VIAL SUB-Q (12:04)
--- NOTE | 2023-02-07 14:23 | PC.NURSE ---
Left hip dressing changed by this RN. Pt has joseph present, skin dry and pink , no drainage is noted. Pt tolerated dressing change well.
[2023-02-07 16:45] VITALS: BP 102/67; PULSE 98; RESP 18; TEMP 36.5; O2SAT 97
[2023-02-07] MEDS: HYDROcodone/acetaminophen (*CRX) 5-325 MG TABLET 1 TAB PO ×2 (16:58→20:55)
[2023-02-07 17:02] LABS: Glucose Point of Care 95 mg/dl (65-105)
[2023-02-07 20:00] VITALS: PULSE 98; RESP 18; O2SAT 97
[2023-02-07] MEDS: HYDROCORTISONE 1% 30 GM CREAM 1 APPLIC TOPICAL (20:55)
[2023-02-07] MEDS: PRAVASTATIN SODIUM 20 MG TABLET PO (20:55)
[2023-02-07 20:59] LABS: Glucose Point of Care 219 mg/dl (65-105)
[2023-02-08] VITALS: BP 119/71; PULSE 96; RESP 16; TEMP 36.8; O2SAT 98
[2023-02-08 05:21] LABS: Hematocrit 31.2 % (37.0-46.0); Hemoglobin 10.3 g/dL (12.4-15.3); Mean Corpuscular Hemoglobin 31.2 pg (27.0-31.0); Mean Corpuscular Volume 94.5 fL (78.0-102.0); Platelet Count Result 348 K/mm3 (150-420); Red Cell Distribution Width 12.8 % (11.6-14.4); White Blood Count 7.5 K/mm3 (4.8-10.8)
[2023-02-08 05:37] LABS: Alanine Aminotransferase 14 U/L (16-63); Albumin Level 2.8 g/dL (3.4-5.0); Alkaline Phosphatase 79 U/L (46-116); Anion Gap 8 mmol/L (8-16); Aspartate Amino Transferase 10 U/L (15-37); Bilirubin,Total 0.4 mg/dL (0.00-1.00); Blood Urea Nitrogen 31 mg/dL (7-18); Calcium 8.9 mg/dL (8.5-10.1); Carbon Dioxide 29 mmol/L (21-32); Chloride 101 mmol/L (98-108); Estimated CRCL calculation 39 ml/min; Estimated Glomerular Filt Rate 56; Glucose 149 mg/dL (70-99); Magnesium 1.8 mg/dL (1.8-2.4); Osmolality Calculated 295 mOsm/kg (285-295); Potassium 4.7 mmol/L (3.5-5.1); Sodium 138 mmol/L (136-145); Total Protein 6.2 g/dL (6.4-8.2)
[2023-02-08 08:00] VITALS: BP 116/68; PULSE 86; RESP 14; TEMP 36.6; O2SAT 96
[2023-02-08] MEDS: ENOXAPARIN 40 MG/0.4 ML SYRINGE SUB-Q (08:42)
[2023-02-08] MEDS: metFORMIN HCL XR 500 MG TAB.SR.24H PO ×2 (08:42→16:50)
[2023-02-08] MEDS: HYDROCORTISONE 1% 30 GM CREAM 1 APPLIC TOPICAL ×2 (08:43→20:25)
--- NOTE | 2023-02-08 09:07 | PM.IMPN ---
Progress Note: A&P Assessment and Plan (1) Closed intertrochanteric fracture of left femur: Qualifiers: Encounter type: initial encounter Fracture alignment: displaced Qualified Code(s): S72.142A - Displaced intertrochanteric fracture of left femur, initial encounter for closed fracture Code(s): S72.142A - Displaced intertrochanteric fracture of left femur, initial encounter for closed fracture Status: Acute Assessment and Plan: s/p left intramedullary nailing, participating in therapy, good ambulation with assist of 1 for stability. Continue PT/OT/hip precautions. Pain medication as needed though patient reports less pain than expected. Will inquire when joseph can be removed (2) Diabetes 1.5, managed as type 2: Code(s): E13.9 - Other specified diabetes mellitus without complications Status: Acute Assessment and Plan: Stable, continue AccuChecks and sliding scale correction. (3) Tobacco dependence: Code(s): F17.200 - Nicotine dependence, unspecified, uncomplicated Status: Acute Assessment and Plan: Smoking cessation discussed. Nicotine patch PRN. Chronic cough noted without dyspnea/fever/chills. (4) Fall: Qualifiers: Encounter type: subsequent encounter Qualified Code(s): W19.XXXD - Unspecified fall, subsequent encounter Code(s): W19.XXXA - Unspecified fall, initial encounter Status: Acute Assessment and Plan: Continue PT/OT and discharge planning for return home (5) Rash and nonspecific skin eruption: Code(s): R21 - Rash and other nonspecific skin eruption Status: Acute Assessment and Plan: Rash noted to left upper leg, continue to monitor, treat with lotion for skin hydration. Non-specific rash but does not appear infectious. Petechial appearing, normal platelets on labs this morning. Continue hydrocortisone cream for itch relief. Time Spent With Patient Time with patient: 25 - 35 minutes Subjective Date/time seen: 02/08/23 09:00 Interval history: This is an 78 year old male patient admitted to Swing Bed program 7 days ago after left hip intramedullary nailing for fractured hip. Patient reports good compliance with therapy with minimal pain, less than he expected. Patient reports rash developed to left upper leg a few days ago and has been itching but that has improved after application of lotion by nursing staff. Care planning conference was held yesterday and anticipated discharge to home expected in 3 days. Review of Systems Review of Systems: All systems reviewed & are unremarkable except as noted in HPI and below Constitutional: Comments: No fever or chills. Patient reports good appetite Cardiovascular: Comments: No chest pain or difficulty breathing. No swelling in legs or feet. Respiratory: Comments: No difficulty breathing or shortness of breath. Patient reports chronic cough unchanged from baseline. Gastrointestinal: Comments: Patient denies nausea, vomiting, constipation or diarrhea Genitourinary: Comments: Patient reports urinating well without difficulty or dysuria Integumentary/Breasts: Comments: Patient reports rash development to left leg a few days ago with associated itching. Denies drainage on left hip dressing. Exam Const: General: comfortable and no acute distress HENMT: Face/Nose/Sinus: Normal nares present Mouth: Yes moist mucous membranes Eyes: General: appearance normal, both eyes and all related structures Sclera: sclerae normal Pupils: Equal, round and reactive pupils present EOM: EOMs intact bilaterally Neck: Neck: supple and no JVD Thyroid: thyroid normal Carotids: no bruits Lymphatic: lymphadenopathy not noted Resp: Effort & Inspection: normal respiratory effort Auscultation: clear to auscultation bilaterally, no crackles, no rales, no rhonchi, no wheezes and lung sounds not diminished Cardio: Rate: regular rate Rhyt
[2023-02-08 11:37] LABS: Glucose Point of Care 226 mg/dl (65-105)
[2023-02-08] MEDS: INSULIN HUMAN LISPRO (*BKC) 1,000 UNITS/10 ML VIAL SUB-Q (11:54)
[2023-02-08 13:20] LABS: Glucose Point of Care 167 mg/dl (65-105)
[2023-02-08 16:30] VITALS: BP 107/61; PULSE 80; RESP 16; TEMP 36.6; O2SAT 96
[2023-02-08 16:42] LABS: Glucose Point of Care 151 mg/dl (65-105)
[2023-02-08] MEDS: HYDROcodone/acetaminophen (*CRX) 5-325 MG TABLET 1 TAB PO (16:50)
[2023-02-08] MEDS: PRAVASTATIN SODIUM 20 MG TABLET PO (20:25)
[2023-02-08 20:28] LABS: Glucose Point of Care 255 mg/dl (65-105)
--- NOTE | 2023-02-08 20:29 | PC.NURSE ---
HS bg level 255
[2023-02-08 23:04] VITALS: BP 108/62; PULSE 84; RESP 15; TEMP 36.6; O2SAT 95
--- NOTE | 2023-02-09 06:45 | PM.IMPN ---
Progress Note: A&P Assessment and Plan (1) Closed intertrochanteric fracture of left femur: Qualifiers: Encounter type: initial encounter Fracture alignment: displaced Qualified Code(s): S72.142A - Displaced intertrochanteric fracture of left femur, initial encounter for closed fracture Code(s): S72.142A - Displaced intertrochanteric fracture of left femur, initial encounter for closed fracture Status: Acute Assessment and Plan: s/p left intramedullary nailing participating in therapy, good ambulation with assist of 1 for stability. Continue PT/OT/hip precautions Pain medication as needed Closed with dermabond (2) Diabetes 1.5, managed as type 2: Code(s): E13.9 - Other specified diabetes mellitus without complications Status: Acute Assessment and Plan: Stable, continue AccuChecks and sliding scale correction Current glucose 255 Increase Metformin to 1000mg BID Continue to trend glucose (3) Tobacco dependence: Code(s): F17.200 - Nicotine dependence, unspecified, uncomplicated Status: Acute Assessment and Plan: Smoking cessation discussed. Nicotine patch PRN. Chronic cough noted (4) Fall: Qualifiers: Encounter type: subsequent encounter Qualified Code(s): W19.XXXD - Unspecified fall, subsequent encounter Code(s): W19.XXXA - Unspecified fall, initial encounter Status: Acute Assessment and Plan: Continue PT/OT Stable DME present at home (5) Rash and nonspecific skin eruption: Code(s): R21 - Rash and other nonspecific skin eruption Status: Acute Assessment and Plan: Rash noted to left upper leg Continue to trend treat with lotion for skin hydration. Stable Time Spent With Patient Time: 37 minutes Time with patient: Greater than 35 minutes Subjective Date/time seen: 02/09/23 07:08 Interval history: Doing well today. Stated he has not had a BM and nothing reported since the . He denies any chest pain, shortness of breath, nausea, vomiting, diarrhea, weakness or fatigue. He is ready for discharge, and stated that he has what he needs at home for discharge. Discharge planned for Tuesday. Review of Systems Review of Systems: All systems reviewed & are unremarkable except as noted in HPI and below Exam Narrative: General: well-nourished, well-appearing 75-year-old female, sitting up in bed, comfortable, NARD Neuro: awake, alert and oriented x4, speech clear, no focal neuro deficits noted HEENMT: normocephalic, atraumatic, EOMI, sclerae anicteric, moist oral mucosa Respiratory: Clear to auscultation bilaterally without crackles, rhonchi or wheezes, nonlabored breathing Cardio: regular rate, regular rhythm with S1-S2 Abdomen: nondistended, normoactive bowel sounds, soft, nontender to palpation Extremities: no edema, erythema, or tenderness to palpation, DP pulses 2+ bilaterally, rash noted to the left upper leg getting better Skin: no rashes or lesions, warm and dry Psych: appropriate mood and affect, judgment and insight intact Objective Data Vital Signs Vital Signs: Vital Signs - 24 hr 02/08/23 08:00 02/08/23 16:30 02/08/23 23:04 Temperature 97.8 F 98 F 97.9 F Pulse Rate 86 80 84 Respiratory Rate 14 16 15 Blood Pressure 116/68 107/61 108/62 Pulse Oximetry 96 96 95 Oxygen Delivery Room Air Room Air Room Air Intake/Output Intake/Output: Intake & Output 02/06/23 02/07/23 02/08/23 02/09/23 23:59 23:59 23:59 23:59 Intake Total 2080 2160 1775 623 Output Total 2900 1800 1700 1325 Balance -820 360 75 -702 Meds/Results Medications: Active Medications Generic Name Dose Route Start Last Admin Trade Name Freq PRN Reason Stop Dose Admin Acetaminophen 650 mg 02/03/23 11:10 02/05/23 20:50 Acetaminophen 325 Mg Tablet PO 650 mg Q6H PRN Administration
[2023-02-09 07:56] LABS: Glucose Point of Care 183 mg/dl (65-105)
[2023-02-09 08:00] VITALS: BP 110/58; PULSE 80; RESP 16; TEMP 36.9; O2SAT 97
[2023-02-09] MEDS: metFORMIN HCL XR 500 MG TAB.SR.24H 1000 MG PO ×2 (08:52→16:57)
[2023-02-09] MEDS: HYDROCORTISONE 1% 30 GM CREAM 1 APPLIC TOPICAL ×2 (08:52→20:57)
[2023-02-09] MEDS: ENOXAPARIN 40 MG/0.4 ML SYRINGE SUB-Q (08:52)
[2023-02-09] MEDS: INSULIN HUMAN LISPRO (*BKC) 1,000 UNITS/10 ML VIAL SUB-Q (11:44)
[2023-02-09 11:47] LABS: Glucose Point of Care 305 mg/dl (65-105)
[2023-02-09 15:57] VITALS: BP 120/63; PULSE 84; RESP 20; TEMP 36.4; O2SAT 96
[2023-02-09 17:02] LABS: Glucose Point of Care 97 mg/dl (65-105)
[2023-02-09] MEDS: SENNA/DOCUSATE SODIUM TABLET 1 TAB PO (21:00)
[2023-02-09] MEDS: PRAVASTATIN SODIUM 20 MG TABLET PO (21:01)
[2023-02-09] MEDS: HYDROcodone/acetaminophen (*CRX) 5-325 MG TABLET 1 TAB PO (21:02)
[2023-02-09 21:06] LABS: Glucose Point of Care 184 mg/dl (65-105)
[2023-02-09 23:36] VITALS: BP 115/64; PULSE 68; RESP 20; TEMP 36.7; O2SAT 95
[2023-02-10 07:36] LABS: Glucose Point of Care 146 mg/dl (65-105)
[2023-02-10 08:00] VITALS: BP 112/76; PULSE 76; RESP 14; TEMP 36.4; O2SAT 94
[2023-02-10] MEDS: polyethylene glycoL 3350 17 GM POWD.PACK PO (08:21)
[2023-02-10] MEDS: metFORMIN HCL XR 500 MG TAB.SR.24H 1000 MG PO ×2 (08:22→16:55)
[2023-02-10] MEDS: ENOXAPARIN 40 MG/0.4 ML SYRINGE SUB-Q (08:22)
[2023-02-10] MEDS: HYDROCORTISONE 1% 30 GM CREAM 1 APPLIC TOPICAL ×2 (08:22→21:13)
--- NOTE | 2023-02-10 08:25 | PM.DS ---
DS: Admitting Diagnosis Discharge Date 02/11/23 Admitting Diagnosis Swing bed for rehab, strengthening, wound management DS: Discharge Diagnosis Discharge Diagnosis (1) Closed intertrochanteric fracture of left femur: Qualifiers: Encounter type: initial encounter Fracture alignment: displaced Qualified Code(s): S72.142A - Displaced intertrochanteric fracture of left femur, initial encounter for closed fracture Code(s): S72.142A - Displaced intertrochanteric fracture of left femur, initial encounter for closed fracture Status: Acute Assessment and Plan: s/p left intramedullary nailing participating in therapy, good ambulation with assist of 1 for stability. Continue PT/OT/hip precautions Pain medication as needed Closed with dermabond (2) Diabetes 1.5, managed as type 2: Code(s): E13.9 - Other specified diabetes mellitus without complications Status: Acute Assessment and Plan: Stable, continue AccuChecks and sliding scale correction Current glucose 255 Increase Metformin to 1000mg BID Continue to trend glucose (3) Tobacco dependence: Code(s): F17.200 - Nicotine dependence, unspecified, uncomplicated Status: Acute Assessment and Plan: Smoking cessation discussed. Nicotine patch PRN. Chronic cough noted (4) Fall: Qualifiers: Encounter type: subsequent encounter Qualified Code(s): W19.XXXD - Unspecified fall, subsequent encounter Code(s): W19.XXXA - Unspecified fall, initial encounter Status: Acute Assessment and Plan: Continue PT/OT Stable DME present at home (5) Rash and nonspecific skin eruption: Code(s): R21 - Rash and other nonspecific skin eruption Status: Acute Assessment and Plan: Rash noted to left upper leg Continue to trend treat with lotion for skin hydration. Stable DS: Summary Hospital Course Hospital Course: patient 78-year-old male with a past medical history of nicotine abuse, diabetes, hyperlipidemia who presented to the ED at [facility] on 01/27/2023 after a fall. Patient underwent a hip repair of the right hip with Dr. De La Rosa on 01/28/2023. After his acute care stay patient was transferred to [place] for a swing bed admission. Upon arrival patient was noted to need physical therapy, occupational therapy, and wound control. Patient has been working hard with PT and OT and has been able to be more independent with a walker. It was noted that patient did develop a rash which has been treated with a Lotrisone cream. Currently patient is stable and denying any complaints of chest pain, shortness of breath, nausea, vomiting, diarrhea or constipation. Patient will be returning home with home health. Patient will need Lovenox 14 more days and family has been educated on how to administer that medication. Patient is excited about going home and is stable for discharge at this time. Overall patient has done well throughout admission. Order for staple removal has been placed and will be removed prior to discharge. Time spent discussing smoking cessation with patient: 3 to 10 minutes Status at Discharge Functional status at discharge: uses cane/walker Overall status at discharge: patient is progressing back to baseline Time Spent with Patient Time attestation: Total time spent providing and/or coordinating discharge services: 40 minutes Time spent: Greater than 30 minutes Specific discharge activities: Diagnostic testing, chart review, developing a treatment plan, education, care coordination documentation, physical exam, result review Exam Narrative: General: well-nourished, well-appearing 75-year-old female, sitting up in bed, comfortable, NARD Neuro: awake, alert and oriented x4, speech clear, no focal neuro deficits noted HEENMT: normocephalic, atraumatic,
--- NOTE | 2023-02-10 09:27 | PM.IMPN ---
Progress Note: A&P Assessment and Plan (1) Closed intertrochanteric fracture of left femur: Qualifiers: Encounter type: initial encounter Fracture alignment: displaced Qualified Code(s): S72.142A - Displaced intertrochanteric fracture of left femur, initial encounter for closed fracture Code(s): S72.142A - Displaced intertrochanteric fracture of left femur, initial encounter for closed fracture Status: Acute Assessment and Plan: s/p left intramedullary nailing participating in therapy, good ambulation with assist of 1 for stability. Continue PT/OT/hip precautions Pain medication as needed Closed with [place] which will be removed in the a.m. prior to discharge (2) Diabetes 1.5, managed as type 2: Code(s): E13.9 - Other specified diabetes mellitus without complications Status: Acute Assessment and Plan: Stable, continue AccuChecks and sliding scale correction Current glucose 146 Increase Metformin to 1000mg BID Continue to trend glucose (3) Tobacco dependence: Code(s): F17.200 - Nicotine dependence, unspecified, uncomplicated Status: Acute Assessment and Plan: Smoking cessation discussed. Nicotine patch PRN. Chronic cough noted (4) Fall: Qualifiers: Encounter type: subsequent encounter Qualified Code(s): W19.XXXD - Unspecified fall, subsequent encounter Code(s): W19.XXXA - Unspecified fall, initial encounter Status: Acute Assessment and Plan: Continue PT/OT Stable DME present at home (5) Rash and nonspecific skin eruption: Code(s): R21 - Rash and other nonspecific skin eruption Status: Acute Assessment and Plan: Rash noted to left upper leg Continue to trend treat with lotion for skin hydration. Stable Time Spent With Patient Time: 36 minutes Time with patient: Greater than 35 minutes Subjective Date/time seen: 02/10/23 09:27 Interval history: patient is doing well this morning. Patient denies any current chest pain, shortness of breath, nausea, vomiting, diarrhea constipation. Patient still does have his joseph in it appears patient can have his joseph removed in the morning. patient should be able to discharge is planned in the morning. Review of Systems Review of Systems: All systems reviewed & are unremarkable except as noted in HPI and below Exam Narrative: General: well-nourished, well-appearing 75-year-old female, sitting up in bed, comfortable, NARD Neuro: awake, alert and oriented x4, speech clear, no focal neuro deficits noted HEENMT: normocephalic, atraumatic, EOMI, sclerae anicteric, moist oral mucosa Respiratory: Clear to auscultation bilaterally without crackles, rhonchi or wheezes, nonlabored breathing Cardio: regular rate, regular rhythm with S1-S2 Abdomen: nondistended, normoactive bowel sounds, soft, nontender to palpation Extremities: no edema, erythema, or tenderness to palpation, DP pulses 2+ bilaterally, rash noted to the left upper leg getting better, Hans[place] present and incision does not appear to have any current signs of infection Skin: no rashes or lesions, warm and dry Psych: appropriate mood and affect, judgment and insight intact Objective Data Vital Signs Vital Signs: Vital Signs - 24 hr 02/09/23 15:57 02/09/23 23:36 02/10/23 08:00 Temperature 97.6 F 98.1 F 97.6 F Pulse Rate 84 68 76 Respiratory Rate 20 20 14 Blood Pressure 120/63 115/64 112/76 Pulse Oximetry 96 95 94 Oxygen Delivery Room Air Room Air Room Air Intake/Output Intake/Output: Intake & Output 02/07/23 02/08/23 02/09/23 02/10/23 23:59 23:59 23:59 23:59 Intake Total 2160 1775 1613 533 Output Total 1800 1700 2525 600 Balance 360 75 -912 -67 Meds/Results Medications: Active Medications Generic Name Dose Route Start Last Admin Trade Name Freq PRN Reason
[2023-02-10 11:39] LABS: Glucose Point of Care 182 mg/dl (65-105)
[2023-02-10 16:00] VITALS: BP 117/72; PULSE 80; RESP 14; TEMP 36.4; O2SAT 96
[2023-02-10 16:57] LABS: Glucose Point of Care 160 mg/dl (65-105)
[2023-02-10 20:00] VITALS: PULSE 80; RESP 14; O2SAT 96
[2023-02-10] MEDS: PRAVASTATIN SODIUM 20 MG TABLET PO (21:13)
[2023-02-10] MEDS: HYDROcodone/acetaminophen (*CRX) 5-325 MG TABLET 1 TAB PO (21:13)
[2023-02-10] MEDS: SENNA/DOCUSATE SODIUM TABLET 1 TAB PO (21:13)
[2023-02-10 21:15] LABS: Glucose Point of Care 173 mg/dl (65-105)
[2023-02-11] VITALS: BP 126/65; PULSE 79; RESP 16; TEMP 36.3; O2SAT 96
--- NOTE | 2023-02-11 06:24 | PC.NURSE ---
joseph removed from left hip incisions. steri-strips applied, incisions well approximated no drainage noted, no s/s of infection noted. patient tolerated well.
[2023-02-11 08:00] VITALS: BP 132/74; PULSE 78; RESP 18; TEMP 36.6; O2SAT 97
[2023-02-11 08:03] LABS: Glucose Point of Care 181 mg/dl (65-105)
[2023-02-11] MEDS: metFORMIN HCL XR 500 MG TAB.SR.24H 1000 MG PO (08:29)
[2023-02-11] MEDS: polyethylene glycoL 3350 17 GM POWD.PACK PO (08:30)
[2023-02-11] MEDS: HYDROCORTISONE 1% 30 GM CREAM 1 APPLIC TOPICAL (08:30)
[2023-02-11] MEDS: ENOXAPARIN 40 MG/0.4 ML SYRINGE SUB-Q (08:30)
--- NOTE | 2023-02-11 08:51 | PM.DS ---
DS: Admitting Diagnosis Discharge Date 02/11/2023 Admitting Diagnosis Rehab, Hip fracture post op DS: Discharge Diagnosis Discharge Diagnosis (1) Closed intertrochanteric fracture of left femur: Qualifiers: Encounter type: initial encounter Fracture alignment: displaced Qualified Code(s): S72.142A - Displaced intertrochanteric fracture of left femur, initial encounter for closed fracture Code(s): S72.142A - Displaced intertrochanteric fracture of left femur, initial encounter for closed fracture Status: Acute Assessment and Plan: s/p left intramedullary nailing, participating in therapy, good ambulation with assist of 1 for stability. Continue PT/OT/hip precautions. Pain medication as needed though patient reports less pain than expected. Will inquire when joseph can be removed 14 more days of lovenox at home. Home health (2) Diabetes 1.5, managed as type 2: Code(s): E13.9 - Other specified diabetes mellitus without complications Status: Acute Assessment and Plan: Stable, continue AccuChecks and sliding scale correction. (3) Tobacco dependence: Code(s): F17.200 - Nicotine dependence, unspecified, uncomplicated Status: Acute Assessment and Plan: Smoking cessation discussed. Nicotine patch PRN. Chronic cough noted without dyspnea/fever/chills. (4) Fall: Qualifiers: Encounter type: subsequent encounter Qualified Code(s): W19.XXXD - Unspecified fall, subsequent encounter Code(s): W19.XXXA - Unspecified fall, initial encounter Status: Acute Assessment and Plan: Continue PT/OT and discharge planning for return home (5) Rash and nonspecific skin eruption: Code(s): R21 - Rash and other nonspecific skin eruption Status: Acute Assessment and Plan: Rash noted to left upper leg, continue to monitor, treat with lotion for skin hydration. Non-specific rash but does not appear infectious. Petechial appearing, normal platelets on labs this morning. Continue hydrocortisone cream for itch relief. DS: Summary Hospital Course Reason for hospitalization: Swing , Postop Hip, REHAb Hospital Course: this 78-year-old male being discharged from swing bed from rehab from a postop hip after a fall from a lawn more. Patient participated with physical therapy where he has advanced where he is able to go home at this time. Patient will go home with home health where he received PT OT in the house last set of labs prior to discharge with a potassium of 4.7, sodium 138, BUN 31, creatinine 1.25, WBC 7.5, hemoglobin 10.3, platelets 348 patient will have some p.r.n. pain medication prep. Patient will have 14 more days of Lovenox that he will inject subcutaneously he will continue on his hyperlipidemia medication as well as his oral diabetes medication he will follow-up with his primary care to provider as well as Ortho patient id no nausea vomiting and/or diarrhea has been able to eat and drink without any difficulties. Patient is safe for discharge at this time Time Spent with Patient Time attestation: Total time spent providing and/or coordinating discharge services: Exam Narrative: General: well-nourished, well-appearing 75-year-old female, sitting up in bed, comfortable, NARD Neuro: awake, alert and oriented x4, speech clear, no focal neuro deficits noted HEENMT: normocephalic, atraumatic, EOMI, sclerae anicteric, moist oral mucosa Respiratory: Clear to auscultation bilaterally without crackles, rhonchi or wheezes, nonlabored breathing Cardio: regular rate, regular rhythm with S1-S2 Abdomen: nondistended, normoactive bowel sounds, soft, nontender to palpation Extremities: no edema, erythema, or tenderness to palpation, DP pulses 2+ bilaterally, rash noted to the left upper leg getting better, Joseph present and incision does not appear to have any current signs of infection Skin: no rashes or lesions, warm and dry Psych: appropriat
--- NOTE | 2023-02-11 10:55 | PC.NURSE ---
1144 family here dc orders went over vocalize an understanding. granddaughter taught how to to give lovenox inj. hands on with orange. dc to family auto in [place].
--- NOTE | 2023-02-21 15:11 | PC.NURSE ---
Pt states he received and understood the discharge instructions. Pt has no other comments.
== END 2023-02-11 09:25 | disposition home health service (06) | DRG 561 ==
PROVIDERS: Nurse Practitioner; Admitting Provider Internal Medicine; PCP Internal Medicine; Visit Provider Internal Medicine
DX: S72.142D Displaced intertrochanteric fracture of left femur, subsequent encounter for closed fracture with routine healing (principal); E78.5 Hyperlipidemia, unspecified; E13.9 Other specified diabetes mellitus without complications; R21 Rash and other nonspecific skin eruption; F17.210 Nicotine dependence, cigarettes, uncomplicated; W19.XXXD Unspecified fall, subsequent encounter
CPT/HCPCS: 36415; 80053; 82948; 83735; 85025; 85027; 97110; 97112; 97116; 97161; 97165; 97530; 97535; A9270; J1650; J1815